=== PATIENT | female | born 1965 | race Caucasian/White ===

== ENCOUNTER → 2020-06-09 14:53 | Outpatient (CLI) | payer OTHER, SELFPAY ==
--- NOTE | ~2020-06-09 | XR_ITS ---
EXAMINATION: XR chest 2V DATE: 06/09/2020 15:13 INDICATION: Cough. TECHNIQUE: Frontal and lateral views of the chest were obtained. COMPARISON: CT abdomen and pelvis 04/21/2018 FINDINGS: There are airspace opacities in lingula, consistent with pneumonia. There is chronic blunti ng of left posterior costophrenic angle correlating with a small diaphragmatic hernia containing fat on the prior CT. No pleural effusion or pneumothorax. The heart size is normal. IMPRESSION: 1. Lingular pneumonia. Reviewed, dictated and finalized at location B. IMPRESSION: 1. Lingular pneumonia.
== END ==
PROVIDERS: PCP Family Medicine; Visit Provider Physician Assistant Medical
DX: R05 Cough (principal); J18.9 Pneumonia, unspecified organism
CPT/HCPCS: 71046

== ENCOUNTER → 2020-06-26 15:23 | Outpatient (CLI) | payer OTHER, SELFPAY ==
--- NOTE | ~2020-06-26 | XR_ITS ---
XR chest 2V 06/26/2020 15:47 Indication: Follow-up pneumonia Procedure: 2 view chest Comparison: 06/09/2020 Findings: There is a masslike density in the lingula which may represent focal consolidation, althoug h parenchymal nodule cannot be excluded. Further evaluation with CT recommended. No pleural effusion. Right lung clear. No pneumothorax. Impression: 1: Masslike density of the lingula. Evaluation with CT with contrast recommended for further characte rization. Reviewed, dictated and finalized at location B. Impression: 1: Masslike density of the lingula. Evaluation with CT with contrast recommende d for further characterization.
== END ==
PROVIDERS: Visit Provider Physician Assistant Medical
DX: J18.9 Pneumonia, unspecified organism (principal); R91.8 Other nonspecific abnormal finding of lung field
CPT/HCPCS: 71046

== ENCOUNTER → 2020-07-04 13:37 | Outpatient (CLI) | payer OTHER, SELFPAY ==
--- NOTE | ~2020-07-04 | CT_ITS ---
EXAMINATION: CT chest w con EXAM DATE: 07/04/2020 14:03 INDICATION: Lung mass. Pneumonia. TECHNIQUE: Spiral CT of the chest following intravenous injection of 75 mL Omnipaque 350. Axial, cor onal and sagittal images were reviewed. Coronal maximum intensity pixel images of chest reviewed. T cynthia dose-length product (DLP) for this examination was 350.73 mGy-cm. The exposure was tailored accor ding to patient size (auto mA exposure control), and iterative reconstruction (ASIR) was used as yakov tional dose reduction technique. Correlation is made to chest x-rays from last month. FINDINGS: There is lingular airspace disease with volume loss, somewhat linear appearance most consi stent with postinfectious atelectasis. The bronchi supplying this appear patent. There are no pleura l or pericardial effusions. Tracheobronchial tree is patent. There is no mediastinal, hilar or ax illary lymphadenopathy. There is no pneumothorax. Heart normal in size. No evidence of coronary arterial calcification. There is hepatic steatosis and small gastroesophageal hiatal hernia. No monae tral pulmonary emboli. There is thoracic spondylosis without osteoblastic or osteolytic lesions iden tified. IMPRESSION: Lingular opacity, appearance most consistent with postinfectious atelectasis. No evidence of underlying mass but recommend one-month follow-up chest x-ray. Reviewed, dictated and finalized at location . IMPRESSION: Lingular opacity, appearance most consistent with postinfectious at electasis. No evidence of underlying mass but recommend one-month follow-up sandie st x-ray.
== END ==
PROVIDERS: PCP Family Medicine; Visit Provider Family Medicine
DX: R51 Headache (principal); R50.9 Fever, unspecified; R22.2 Localized swelling, mass and lump, trunk
CPT/HCPCS: 71260; Q9967

== ENCOUNTER → 2022-02-04 15:14 | Outpatient (CLI) | payer OTHER, SELFPAY ==
--- NOTE | ~2022-02-04 | MM_ITS ---
EXAMINATION: MM screening [place] BI w errol HISTORY: Screening TECHNIQUE: Craniocaudal and mediolateral oblique 3-D tomosynthesis images were obtained and synthetic 2-D images were generated. CAD analysis was submitted and interpreted. COMPARISON: No prior mammogram is available for comparison at this institution. BREAST PARENCHYMAL COMPOSITION: There are scattered areas of fibroglandular density. FINDINGS: There are asymmetries centered in the upper outer quadrant of the right breast, middle thir d which are obscured by fibroglandular tissue. There is a small focal mass containing calcification i n the lower outer quadrant of the left breast. There is a possible mass just lateral to the left nipp le on CC view anteriorly. IMPRESSION: 1. Bilateral asymmetries and focal left breast mass. 2. Additional mammographic views and possible breast ultrasound are recommended. BI-RADS Category 0: Incomplete: Needs additional imaging evaluation. Reviewed, dictated and finalized at location A. IMPRESSION: 1. Bilateral asymmetries and focal left breast mass. 2. Additional mammographic views and possible breast ultrasound are recommended . BI-RADS Category 0: Incomplete: Needs additional imaging evaluation.
== END ==
PROVIDERS: PCP Family Medicine; Visit Provider Nurse Practitioner Obstetrics & Gynecology
DX: Z12.31 Encounter for screening mammogram for malignant neoplasm of breast (principal); R92.8 Other abnormal and inconclusive findings on diagnostic imaging of breast
CPT/HCPCS: 77063; 77067

== ENCOUNTER → 2022-03-19 07:49 | Outpatient (CLI) | payer OTHER, SELFPAY ==
--- NOTE | ~2022-03-19 | MM_ITS ---
EXAMINATION: MM diagnostic [place] BI w errol HISTORY: Right breast masses and left breast asymmetry on screening mammogram TECHNIQUE: Additional 3-D tomosynthesis images of the breasts were performed and synthetic 2-D images were generated. CAD analysis was submitted and interpreted. COMPARISON: 02/04/2022, 12/15/2020,11/02/2019, 10/29/2018 BREAST PARENCHYMAL COMPOSITION: The breasts are heterogeneously dense, which may obscure small masses . FINDINGS: There is a return to baseline fibroglandular appearance with spot compression of the left b reast in the area questioned on screening mammogram. Right breast masses have a stable appearance wit h spot compression when compared to prior examinations. There has been no suspicious interval change. IMPRESSION: 1. No mammographic evidence of malignancy. 2. Recommend routine screening mammography in one year. BI-RADS Category 2: Benign finding(s). Reviewed, dictated and finalized at location A.
== END ==
PROVIDERS: PCP Family Medicine; Visit Provider Nurse Practitioner Obstetrics & Gynecology
DX: N63.10 Unspecified lump in the right breast, unspecified quadrant (principal); N63.20 Unspecified lump in the left breast, unspecified quadrant; R92.8 Other abnormal and inconclusive findings on diagnostic imaging of breast
CPT/HCPCS: 77062; 77066; G0279

== ENCOUNTER 2024-01-09 18:54 | Emergency (ER) | payer OTHER, SELFPAY ==
--- NOTE | ~2024-01-09 | CT_ITS ---
EXAMINATION: CT abdomen pelvis w con DATE: 01/09/2024 20:55 INDICATION: RUQ pain, N/V TECHNIQUE: Computed tomography (CT) of the abdomen and pelvis was performed with 100 mL Omnipaque-350 intravenous contrast. Automated exposure control and iterative reconstruction technique were employe d. The dose-length product was 444.56 mGy-cm. COMPARISON: 04/21/2018. FINDINGS: Lower thorax: Unremarkable Liver: Mild hepatomegaly. Diffuse fatty infiltration. Biliary/Gallbladder: Minimal hyperdensity at the gallbladder neck may represent gallbladder sludge or stones, no inflammatory changes No bile duct dilation. Pancreas: Fatty infiltration, no inflammatory change Spleen: Normal. Adrenals:No mass. Kidneys: No suspicious mass, obstructing stone, or hydronephrosis. GI tract: No small or large bowel dilation. Normal appendix. Mesentery/Peritoneum: No ascites, mass, or free air. Retroperitoneum: No mass. Pelvis: Normal urinary bladder. Absent uterus. Small left ovary. The right ovary is not confidently v isualized.. Soft Tissues: Soft tissues and body wall unremarkable. Bones: No acute osseous finding. IMPRESSION: Mild esophagitis/gastritis. Hepatomegaly with hepatic steatosis. No CT findings of pancreatitis. Reviewed, dictated and finalized at location K.
[2024-01-09 19:20] VITALS: BP 176/82; PULSE 86; RESP 20; TEMP 36.4; O2SAT 96
[2024-01-09 19:33] VITALS: BP 165/89; PULSE 73; RESP 13; O2SAT 99
[2024-01-09 19:52] LABS: Basophils Percent Auto 0.2 % (0.2-1.2); Eosinophils Percent Auto 0.1 % (0-4.4); Hematocrit 43.3 % (37.0-47.0); Hemoglobin 14.8 g/dL (12.0-15.0); Immature Granulocyte Absolute 0.05 K/mm3 (0.00-0.031); Immature Granulocyte Percent A 0.3 % (0-0.5); Lymphocytes Percent Auto 6.2 % (18.3-44.2); Mean Corpuscular HGB Conc 34.2 g/dl (32-36); Mean Corpuscular Hemoglobin 29.7 pg (26-34); Mean Corpuscular Volume 86.8 fl (80-100); Mean Platelet Volume 10.3 fl (7.4-10.4); Monocytes Absolute Auto 0.5 K/mm3 (0.1-0.6); Neutrophils Absolute Auto 14.5 K/mm3 (1.3-6.7); Neutrophils Percent Auto 90.2 % (45.5-73.1); Platelet Count Result 272 k/mm3 (150-375); Red Blood Count 4.99 M/mm3 (4.2-5.4)
[2024-01-09 19:55] LABS: Appearance Urine Turbid (Clear); Bacteria Urine None Seen /hpf; Bilirubin Urine Negative (Negative); Blood Urine Negative (Negative); Color Urine Yellow (Yellow); Glucose Urine UA Negative (Negative); Ketones Urine 2+ mg/dL (Negative); Leukocyte Esterase Ur Trace LEU/UL (Negative); Nitrate Urine Negative (Negative); Non Pathogenic Casts 0-2; Protein Urine Negative (Negative); RBC Urine 0-2 /hpf (0-2); Specific Grav Ur 1.015 (1.001-1.035); Squamous Epithelial Cell Urine None Seen /hpf (Few); Urobilinogen Urine 0.2 mg/dL (<2.0); WBC Urine 0-5 /hpf (0-3)
[2024-01-09 19:56] LABS: Add Urine Microscopic? NO
[2024-01-09 20:02] LABS: Alanine Aminotransferase 45 U/L (6-35); Albumin Level 4.8 g/dL (3.5-5.1); Alkaline Phosphatase 85 U/L (38-126); Anion Gap 7 mmol/L (4-12); Aspartate Amino Transferase 31 U/L (14-36); Bilirubin,Total 1.4 mg/dL (0.2-1.3); Blood Urea Nitrogen 13 mg/dL (7-17); Calcium 10.6 mg/dL (8.4-10.2); Carbon Dioxide 30 mmol/L (22-30); Chloride 98 mmol/L (98-107); Estimated CRCL calculation 72 ml/min; Estimated Glomerular Filt Rate > 60; Glucose 149 mg/dL (65-110); Lipase 128 U/L (23-300); Potassium 4.2 mmol/L (3.4-5.0); Sodium 135 mmol/L (137-145)
[2024-01-09] MEDS: ONDANSETRON INJ 4 MG/2 ML VIAL IV PUSH ×2 (20:16→22:46)
[2024-01-09] MEDS: MORPHINE SULFATE (*CRX) 4 MG/ML INJ IV PUSH (20:16)
[2024-01-09] MEDS: SODIUM CHLORIDE 0.9% IV 1,000 ML 999 ML IV CONT (20:17)
[2024-01-09 20:39] LABS: Lactic Acid Reflex 1.8 mmol/L (0.7-2.0)
[2024-01-09 21:14] VITALS: BP 155/80; PULSE 92; RESP 18; O2SAT 95
[2024-01-09] MEDS: METOCLOPRAMIDE HCL INJ 10 MG/2 ML VIAL IV PUSH (21:27)
[2024-01-09] MEDS: diphenhydrAMINE HCl INJ 50 MG/ML VIAL 25 MG IV PUSH (21:29)
--- NOTE | 2024-01-09 21:50 | ED.ABDPAIN ---
HPI - Abdominal Pain General Chief Complaint: Abdominal Pain Stated Complaint: abdominal pain n/v Time Seen by Provider: 01/09/24 19:33 Source: patient Mode of arrival: ambulatory Limitations: no limitations History of Present Illness HPI narrative: patient is a 58-year-old female who presents the ED with report of abdominal pain. Patient reports she began feeling ill last night and developed indigestion throughout the night. She then developed N/V today, reporting multiple episodes of emesis which progressed to nausea with dry heaving. Reports having intermittent discomfort in her right upper abdomen, multiple bowel movements today. Denies diarrhea, rectal bleeding, melena. Denies fevers. Denies cough or cold symptoms. Denies urinary complaints. Denies chest pain or shortness of breath. Patient has a history of pancreatitis 4 years ago and states pain feels somewhat similar. She reported having pizza and wine last night. Related Data Allergies Allergy/AdvReac Type Severity Reaction Status Date / Time clarithromycin Allergy Unknown Unknown Verified 01/09/24 19:34 Penicillins Allergy Unknown Unknown Verified 01/09/24 19:34 Sulfa (Sulfonamide Allergy Unknown Unknown Verified 01/09/24 19:34 Antibiotics) sulfanilamide Allergy Unknown Unknown Verified 01/09/24 19:34 Review of Systems Review of Systems: CONSTITUTIONAL: Denies fever, chills, or sweats. CARDIOVASCULAR: Denies chest pain. RESPIRATORY: Denies dyspnea. GASTROINTESTINAL: See HPI. GENITOURINARY: Denies dysuria or hematuria. MUSCULOSKELETAL: Denies back pain, extremity pain, myalgia. All systems reviewed & are unremarkable except as noted in HPI and below PMFSH Past Medical History Medical History BMI 29.0-29.9,adult BMI 30.0-30.9,adult BMI 31.0-31.9,adult Family History Family History Mother Family history of renal cell carcinoma H/O kidney removal Father , cancer Sibling Depression Hyperlipidemia Hypertension Social History Social History Smoking status: Former smoker Second hand tobacco smoke exposure: Yes Smoking end date: 10/13/10 Alcohol intake: current Substance use: current Substance use type: marijuana Lack of Transportation: No Lack of Food: Never True Current Housing: I Have Housing Concerned About Future Housing: No Difficulty Paying Gas/Electric Bills: No Difficulty Paying for Meds: No Currently Unemployed: No Education: High School Diploma/GED Difficulty w/ Childcare or Family Care: No Living arrangements: with family Occupation/Education: occupation 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 Gender identity (if verbalized by the patient): Female Exam Narrative: GENERAL: Mildly ill appearing, well-nourished, non-toxic, in no acute distress. HEAD: Normocephalic, atraumatic. RESPIRATORY: Airway patent, respirations nonlabored. Clear to auscultation bilaterally, no rales, rhonchi, wheezing. CARDIOVASCULAR: Regular rate and rhythm without murmurs, rubs, or gallops. ABDOMINAL: Soft, Minimal tenderness in right upper quadrant, epigastric region. Nondistended. Normoactive BS. MUSCULOSKELETAL: Moves all extremities. No gross deformities. SKIN: Warm, dry, normal color. NEURO: A&O X3. Speech clear. PSYCHIATRIC: Appropriate mood and affect. Normal interaction. Course Vital Signs Vital signs: Vital Signs Temperature 97.5 F L 01/09/24 19:20 Pulse Rate 86 01/09/24 19:20 Respiratory Rate 20 01/09/24 19:20 Blood Pressure 176/82 H 01/09/24 19:20 Pulse Oximetry 96 01/09/24 19:20 Oxygen Delivery Room Air 01/09/24 19:20 Temperature 97.5 F L 01/09/24 19:20 Pulse Rate 88 01/09/24 22:27 Respiratory
[2024-01-09] MEDS: BELLADONNA ALK/PHENOB ELIX 10 ML, MAG HYDROX/ALUMINUM HYD/SIMETH 30 ML, LIDOCAINE HCL 2... PO (21:58)
--- NOTE | 2024-01-09 22:26 | PC.NURSE ---
Pt passed PO challenge
[2024-01-09 22:27] VITALS: BP 148/81; PULSE 88; RESP 14; O2SAT 96
[2024-01-09 22:51] VITALS: BP 158/90; PULSE 86; RESP 16; O2SAT 96
== END 2024-01-09 22:51 | disposition home or self-care (01) ==
PROVIDERS: Student in an Organized Health Care Education/Training Program; Emergency Provider Physician Assistant; PCP Family Medicine
DX: K29.00 Acute gastritis without bleeding (principal); Z87.891 Personal history of nicotine dependence; K76.0 Fatty (change of) liver, not elsewhere classified
CPT/HCPCS: 36415; 74177; 80053; 81003; 83605; 83690; 85025; 96361; 96374; 96375; 96376; 99284; A9270; J1200; J2270; J2405; J2765; J7030; Q9967

== ENCOUNTER 2024-01-11 04:40 | Inpatient (IN) | payer OTHER, SELFPAY ==
[2024-01-11] VITALS (16 sets, daily range): BP systolic 129–177; BP diastolic 81–145; PULSE 75–92; RESP 15–18; TEMP 36.6–37.1; O2SAT 92–100
--- NOTE | ~2024-01-11 | CT_ITS ---
EXAMINATION: CT abdomen pelvis wo/w con DATE: 01/11/2024 08:59 INDICATION: Pancreatitis. Hyperbilirubinemia. TECHNIQUE: Computed tomography (CT) of the abdomen and pelvis was performed without and with 100 mL O mnipaque 350 intravenous contrast. Automated exposure control and iterative reconstruction technique were employed. The dose-length product was 1027.21 mGy-cm. COMPARISON: CT abdomen and pelvis 01/09/2024 FINDINGS: The visualized portions of the lung bases demonstrate minimal atelectasis. No pleural effus ion. The heart size is normal. No pericardial effusion. There is a small sliding hiatal hernia. There is diffuse hepatic steatosis. There is contrast in the gallbladder, which is normal in size. The spl een, pancreas, adrenal glands, and kidneys are normal. There is no urolithiasis. There are no dilated loops of bowel. The appendix is normal. There are no pathologically enlarged lymph nodes. There is n o free intraperitoneal fluid. There is a benign bone island in right sacrum. There is moderate lumbar spondylosis. There is mild chronic anterior wedging of multiple vertebral bodies. There is a benign bone island in L4 vertebral body. IMPRESSION: 1. Diffuse hepatic steatosis. 2. Small sliding hiatal hernia. Reviewed, dictated and finalized at location E.
--- NOTE | ~2024-01-11 | US_ITS ---
US abdomen limited DATE: 01/11/2024 09:04 INDICATION: Pancreatitis. Positive Miller's sign. TECHNIQUE: Real-time imaging of liver, pancreas, gallbladder areas COMPARISON: 01/09/2024 CT abdomen pelvis 04/21/2018 right upper quadrant abdominal ultrasound examination FINDINGS: The pancreas is obscured by bowel gas. Hepatic steatosis. No hepatic space-occupying mass lesion is evident. Normal hepatopedal portal venou s flow direction. The common bile duct measures 4.5 mm, normal. No gallstones or gallbladder wall thickening or abnorma l pericholecystic fluid collection. Negative sonographic Miller's sign. IMPRESSION: Hepatic steatosis Normal gallbladder; negative sonographic Miller's sign Pancreas is obscured by bowel gas Reviewed, dictated and finalized at Location A. Reviewed, dictated and finalized at location A.
--- NOTE | 2024-01-11 04:54 | ED.ABDPAIN ---
HPI - Abdominal Pain General Chief Complaint: Abdominal Pain Stated Complaint: N/V, abd pain Time Seen by Provider: 01/11/24 04:54 Source: patient Mode of arrival: ambulatory Limitations: no limitations History of Present Illness HPI narrative: Patient presents with complaint of nausea, vomiting, and RUQ abdominal pain. Her pain is worse while lying down. She was seen previously for this on 01/08 and diagnosed with gastritis. She attribute symptoms at the time to the 2 glasses of wine she had consumed the night before but she has not been improving despite taking the Zofran. She has also been taking Nexium (instead of the omeprazole that had been prescribed from the ED). She has a history of pancreatitis. She has been taking ibuprofen and aspirin for a fever (temp 100 - 101F at home) and has been having bilious vomiting. Last oral intake Friday. Last bowel movement Friday. She has trialed Tums; can't keep anything down. She had one episode of emesis that was nearly projectile but not all have been. She states when she was in the ED last time she required 3 doses of IV ondansetron. She believes the abdominal pain started before the vomiting. Related Data Home Medications Medication Instructions Recorded Confirmed azelastine 137 mcg-fluticasone 50 1 spray intranasal BID PRN Allergy 01/11/24 01/11/24 mcg/spray nasal spray (Dymista) Symptoms omeprazole 10 mg capsule,delayed 10 mg PO DAILY PRN Gastric Reflux 01/11/24 01/11/24 release Allergies Allergy/AdvReac Type Severity Reaction Status Date / Time clarithromycin Allergy Unknown Unknown Verified 01/11/24 07:28 Penicillins Allergy Unknown Unknown Verified 01/11/24 07:28 Sulfa (Sulfonamide Allergy Unknown Unknown Verified 01/11/24 07:28 Antibiotics) sulfanilamide Allergy Unknown Unknown Verified 01/11/24 07:28 [facility] Past Medical History Medical History (Updated 01/13/24 @ 00:35 by Meera Katz MD) Allergies Anxiety Asthma Hyperlipidemia Pancreatitis Surgical History Surgical History (Updated 01/13/24 @ 00:26 by Meera Katz MD) History of hysterectomy 2002 Family History Family History Mother Family history of renal cell carcinoma H/O kidney removal Father , cancer Sibling Depression Hyperlipidemia Hypertension Social History Social History (Updated 01/11/24 @ 14:57 by Olivia Garcia PA-C) Social History: Patient currently lives in a house with her spouse. She has never had any kids. She drinks 3 times a week and has approximately 2 drinks each setting. She does use marijuana approximately every other day. Has a history of tobacco use for approximately 20 years with 1 pack per day. She has not smoked for approximately 20 years. 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 Gender identity (if verbalized by the patient): Female Spiritual care concerns: No Exam Narrative: GENERAL: Well-appearing, well-nourished, and in no acute distress. HEAD: Normocephalic, atraumatic. EYES: Non injected, non icteric ENT: Nares clear, no rhinorrhea or epistaxis. NECK: Supple. CHEST: Speaking in full sentences. No respiratory distress. HEART: Regular rate and rhythm. . ABD
[2024-01-11] MEDS: SODIUM CHLORIDE 0.9% IV 1,000 ML 999 ML IV CONT ×2 (05:14→07:27)
[2024-01-11] MEDS: PROCHLORPERAZINE EDISYLATE 10 MG/2 ML VIAL IV PUSH ×3 (05:16→23:45)
[2024-01-11 05:32] LABS: Basophils Percent Auto 0.2 % (0.2-1.2); Eosinophils Percent Auto 0.2 % (0-4.4); Hematocrit 45.1 % (37.0-47.0); Hemoglobin 15.4 g/dL (12.0-15.0); Immature Granulocyte Absolute 0.09 K/mm3 (0.00-0.031); Immature Granulocyte Percent A 0.5 % (0-0.5); Lymphocytes Absolute Auto 1.67 K/mm3 (0.9-3.2); Lymphocytes Percent Auto 8.4 % (18.3-44.2); Mean Corpuscular HGB Conc 34.1 g/dl (32-36); Mean Corpuscular Hemoglobin 29.3 pg (26-34); Mean Corpuscular Volume 85.7 fl (80-100); Mean Platelet Volume 10.3 fl (7.4-10.4); Monocytes Absolute Auto 1.4 K/mm3 (0.1-0.6); Monocytes Percent Auto 6.9 % (2.6-8.5); Neutrophils Absolute Auto 16.7 K/mm3 (1.3-6.7); Neutrophils Percent Auto 83.8 % (45.5-73.1); Platelet Count Result 305 k/mm3 (150-375); Red Blood Count 5.26 M/mm3 (4.2-5.4); Red Cell Distribution Width 12.2 % (11.5-14.5); White Blood Count 19.9 K/mm3 (4.5-10.0)
[2024-01-11 05:42] LABS: Alanine Aminotransferase 48 U/L (6-35); Alkaline Phosphatase 80 U/L (38-126); Anion Gap 10 mmol/L (4-12); Aspartate Amino Transferase 29 U/L (14-36); Bilirubin,Total 1.8 mg/dL (0.2-1.3); Blood Urea Nitrogen 17 mg/dL (7-17); Calcium 10.1 mg/dL (8.4-10.2); Carbon Dioxide 27 mmol/L (22-30); Chloride 93 mmol/L (98-107); Estimated CRCL calculation 70 ml/min; Estimated Glomerular Filt Rate > 60; Glucose 133 mg/dL (65-110); Lipase 1321 U/L (23-300); Potassium 3.9 mmol/L (3.4-5.0); Sodium 130 mmol/L (137-145)
[2024-01-11 05:43] LABS: Appearance Urine Clear (Clear); Bacteria Urine None Seen /hpf; Bilirubin Urine Negative (Negative); Blood Urine 1+ (Negative); Color Urine Yellow (Yellow); Glucose Urine UA Negative (Negative); Ketones Urine 2+ mg/dL (Negative); Leukocyte Esterase Ur Trace LEU/UL (Negative); Nitrate Urine Negative (Negative); Non Pathogenic Casts 0-2; Protein Urine 2+ mg/dL (Negative); Squamous Epithelial Cell Urine Occasional /hpf (Few); Urobilinogen Urine 0.2 mg/dL (<2.0); WBC Urine 0-5 /hpf (0-3); pH Urine 6.5 (5.0-9.0)
[2024-01-11 06:00] LABS: Add Urine Microscopic? YES
[2024-01-11 06:08] LABS: Influenza A QL RT-PCR Negative (Negative); Influenza B QL RT-PCR Negative (Negative); SARS-CoV-2 RNA PCR Negative (Negative)
[2024-01-11] MEDS: metroNIDAZOLE 500 MG/ISO 100ML 500 MG/100 ML BAG 100 MG IVPB ×2 (07:53→13:04)
--- NOTE | 2024-01-11 08:31 | PM.IMHP ---
H&P: HPI History of Present Illness Date/Time: 01/11/24 08:31 Chief Complaint: abdominal pain Narrative: This is a 58-year-old female with a past medical history of asthma, hyperlipidemia, anxiety and GERD the present to the ED on 01/11/2024 with chief complaint of abdominal pain. patient had been experiencing nausea vomiting as well as a subjective fever at home. Patient states that the fever was between 100 and 101. She also was experiencing decreased appetite. Her abdominal pain was isolated to the right upper quadrant. Patient's pain started on 01/08/2024 after she had pizza for dinner and 2 glasses of wine. Patient states that she drinks alcohol approximately 3 times a week about 2 drinks each time. She also uses marijuana every other day in the form of edibles. Has a smoking history but quit 20 years ago. Patient was recently seen in the ED on 01/09/2024 due to abdominal pain. Patient's workup included CBC, CMP, lipase and CT abdomen pelvis. She did have a elevated white count of 16, elevated bilirubin of 1.4, ALT 45 and ketones in her urine. CT abdomen pelvis grossly normal. Lipase within normal limits at that time. Patient was sent home on some Zofran and omeprazole. She returned during this visit with worsening abdominal pain. Her white count elevated to 19.9, hemoglobin 15.4, bilirubin 1.8 and a lipase level of 1321. Her UA was abnormal although appeared more due to dehydration rather than infection. Right upper quadrant ultrasound revealed normal gallbladder. Repeat CT abdomen pelvis showed diffuse hepatic steatosis without evidence of pancreatitis. She was started on IV fluids. She is admitted for further treatment acute pancreatitis. At the time of my evaluation patient is abdominal pain was much improved and states that she had an achy right upper quadrant pain but much better than it was previously. [facility] Past Medical History Medical History (Updated 01/11/24 @ 14:56 by Olivia Garcia PA-C) Allergies Anxiety Asthma BMI 29.0-29.9,adult BMI 30.0-30.9,adult BMI 31.0-31.9,adult Hyperlipidemia Family History Family History Mother Family history of renal cell carcinoma H/O kidney removal Father , cancer Sibling Depression Hyperlipidemia Hypertension Social History Social History (Updated 01/11/24 @ 14:57 by Olivia Garcia PA-C) Social History: Patient currently lives in a house with her spouse. She has never had any kids. She drinks 3 times a week and has approximately 2 drinks each setting. She does use marijuana approximately every other day. Has a history of tobacco use for approximately 20 years with 1 pack per day. She has not smoked for approximately 20 years. 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 Gender identity (if verbalized by the patient): Female Spiritual care concerns: No Meds Home Medications and Allergies Home Medications Medication Instructions Recorded Confirmed Type alprazolam 0.25 mg tablet (Xanax) 0.25 mg PO DAILY PRN anxiety #30 05/22/23 01/11/24 Rx tabs rosuvastatin 10 mg tablet (Crestor) 10 mg PO DAILY #90 tabs 05/22/23 01/11/24 Rx albuterol sulfate 90 mcg/actuation 1 inh inhalation Q4H P
[2024-01-11] MEDS: SODIUM CHLORIDE 0.9% IV 1,000 ML 175 ML IV CONT ×3 (09:06→23:45)
--- NOTE | 2024-01-11 09:10 | ADMGEN ---
This patient, Jamilah Anderson, was admitted to [facility] Surg Room 316-02 @ 0910. Patient/family oriented to hospital policies and general routines including ID bracelet, bed and alarms, visiting hours, pain management, procedures, bathroom and other care routines, personal items, smoking policy, room service/diet, and visiting hours. Information on how to activate the Rapid Response Team has been discussed. Patient/Family are encouraged to report perceived risks to care and to ask questions if they do not understand what they are told or what they should do.
[2024-01-11] MEDS: ACETAMINOPHEN 325 MG TABLET 650 MG PO (17:54)
[2024-01-12] MEDS: ACETAMINOPHEN 325 MG TABLET 650 MG PO (03:31)
[2024-01-12] MEDS: SODIUM CHLORIDE 0.9% IV 1,000 ML 175 ML IV CONT ×3 (05:20→21:52)
[2024-01-12 05:59] VITALS: BP 114/60; PULSE 106; RESP 16; TEMP 37.3; O2SAT 92
[2024-01-12 07:24] LABS: Hematocrit 40.4 % (37.0-47.0); Hemoglobin 13.4 g/dL (12.0-15.0); Mean Corpuscular HGB Conc 33.2 g/dl (32-36); Mean Corpuscular Hemoglobin 29.4 pg (26-34); Mean Corpuscular Volume 88.6 fl (80-100); Mean Platelet Volume 10.4 fl (7.4-10.4); Platelet Count Result 221 k/mm3 (150-375); Red Blood Count 4.56 M/mm3 (4.2-5.4); White Blood Count 12.9 K/mm3 (4.5-10.0)
[2024-01-12 07:32] LABS: Anion Gap 6 mmol/L (4-12); Blood Urea Nitrogen 12 mg/dL (7-17); Calcium 8.4 mg/dL (8.4-10.2); Carbon Dioxide 25 mmol/L (22-30); Chloride 100 mmol/L (98-107); Estimated CRCL calculation 95 ml/min; Estimated Glomerular Filt Rate > 60; Glucose 99 mg/dL (65-110); Potassium 3.2 mmol/L (3.4-5.0); Sodium 131 mmol/L (137-145)
[2024-01-12 08:00] VITALS: PULSE 106; RESP 16; O2SAT 92
[2024-01-12] MEDS: POTASSIUM CHLORIDE 20 MEQ PACKET (FOR LIQUID) 40 MEQ PO (08:55)
[2024-01-12 09:25] LABS: Lipase 1516 U/L (23-300)
[2024-01-12] MEDS: HYDROcodone/acetaminophen (*CRX) 5-325 MG TABLET 1 TAB PO (09:34)
[2024-01-12] MEDS: PROCHLORPERAZINE EDISYLATE 10 MG/2 ML VIAL IV PUSH (09:37)
[2024-01-12 13:30] VITALS: BP 142/85; PULSE 82; RESP 17; TEMP 36; O2SAT 95
--- NOTE | 2024-01-12 14:47 | PM.IMPN ---
Progress Note: A&P Assessment and Plan (1) Acute pancreatitis: Code(s): K85.90 - Acute pancreatitis without necrosis or infection, unspecified Status: Acute Assessment and Plan: Patient presented with acute abdominal pain and found to have elevated lipase of 1321. Right upper quadrant ultrasound without signs of acute infection CT abdomen pelvis showing hepatic steatosis without evidence of pancreatitis. Patient started on IV fluids. Analgesics and antiemetics as needed. Clear liquid diet Trend lipase levels 1321 -> 1516 (2) Elevated bilirubin: Code(s): R17 - Unspecified jaundice Status: Acute Assessment and Plan: Patient found to have elevated bilirubin of 1.8. Right upper quadrant ultrasound negative for acute infection IV fluids continue. (3) Transaminitis: Code(s): R74.01 - Elevation of levels of liver transaminase levels Status: Acute Assessment and Plan: Patient with ALT elevated to 45. Continue to monitor (4) Dehydration: Code(s): E86.0 - Dehydration Status: Acute Assessment and Plan: patient has had decreased oral intake due to abdominal pain. Hemoglobin elevated to 15.4. UA with elevated ketones and protein. IV fluids continued Subjective Date/time seen: 01/12/24 14:47 Interval history: patient's abdominal pain is improving. She is still having some intermittent nausea. Her lipase elevated at 1500 today. Will continue IV fluids. Pain medications as needed. Will attempt to advance diet tomorrow. CT abdomen pelvis did not show any signs of acute pancreatitis. Will order triglyceride level for the a.m. Exam Narrative: GENERAL: Comfortable, no acute distress HENMT: moist mucous membranes EYES: EOM intact b/l NECK: no lymphadenopathy RESPIRATORY: clear to auscultation, no increased respiratory effort CARDIO: Regular rate and rhythm GI: soft, Mild right upper quadrant tenderness, bowel sounds present SKIN/EXTREMITIES: no rashes, no edema, no redness or tenderness NEURO: PROM intact, answers questions appropriately, A&O x4 Objective Data Vital Signs Vital Signs: Vital Signs - 24 hr 01/11/24 21:17 01/12/24 05:59 01/12/24 08:00 Temperature 98.8 F 99.1 F Pulse Rate 78 106 H 106 H Respiratory Rate 16 16 16 Blood Pressure 129/81 114/60 Pulse Oximetry 97 92 92 Oxygen Delivery Room Air 01/12/24 13:30 Temperature 96.8 F L Pulse Rate 82 Respiratory Rate 17 Blood Pressure 142/85 H Pulse Oximetry 95 Oxygen Delivery Intake/Output Intake/Output: Intake & Output 01/09/24 01/10/24 01/11/24 01/12/24 23:59 23:59 23:59 23:59 Intake Total 4490 3377.1 Balance 4490 3377.1 Meds/Results Medications: Active Medications Generic Name Dose Route Start Last Admin Trade Name Freq PRN Reason Stop Dose Admin Acetaminophen 650 mg 01/11/24 14:58 01/12/24 03:31 Acetaminophen 325 Mg Tablet PO 650 mg Q6H PRN Administration Mild Pain (1-3) or Fever Hydrocodone Bitart/Acetaminophen 1 tab 01/11/24 14:58 01/12/24 09:34 Hydrocodone/Acetaminophen (*Crx) 5-325 Mg Tablet PO 1 tab Q6H PRN Administration Pain Rated 4-6 Albuterol 1 puff 01/11/24 14:57 Albuterol Sulfate (*Sp) Aerosol 1 Puff INHALATION Q4H PRN shortness of breath or wheezing Alprazolam 0.25 mg 01/11/24 14:57 Alprazolam (*Crx) 0.25 Mg Tablet PO DAILY PRN anxiety Hydromorphone HCl 0.5 mg 01/11/24 14:58 Hydromorphone Hcl Inj (*Crx) 1 Mg/Ml Syr IV PUSH Q3H PRN Pain Rated 7-10 Sodium Chloride 1,000 mls @ 175 mls/hr 01/11/24 06:45 01/12/24 11:23 Normal Saline Iv IV CONT 175 mls/hr .Q5H43M LUCIA Administration Prochlorperazine Edisylate 10 mg 01/11/24 06:41 01/12/24 09:37 Prochlorperazine Edisylate 10 Mg/2 Ml Vial IV PUSH 10 mg Q6H PRN Administration Nausea And Vomiting Radiology Result
[2024-01-12 20:53] VITALS: BP 133/86; PULSE 85; RESP 20; TEMP 36.8; O2SAT 97
[2024-01-12] MEDS: MAGNES & ALUM HYD/SIMETH/DIPHENHYD/LIDOCAINE 119 ML MOUTHWASH BY MOUTH (21:55)
[2024-01-12 22:27] LABS: Strep Group A RT-PCR NOT DETECTED (Negative)
[2024-01-13] MEDS: MAGNES & ALUM HYD/SIMETH/DIPHENHYD/LIDOCAINE 119 ML MOUTHWASH BY MOUTH ×3 (02:26→09:44)
[2024-01-13] MEDS: ACETAMINOPHEN 325 MG TABLET 650 MG PO (02:32)
[2024-01-13 04:45] VITALS: BP 140/73; PULSE 71; RESP 18; TEMP 36.8; O2SAT 94
[2024-01-13] MEDS: SODIUM CHLORIDE 0.9% IV 1,000 ML 175 ML IV CONT (05:47)
[2024-01-13 07:07] LABS: Hemoglobin 11.5 g/dL (12.0-15.0); Mean Corpuscular HGB Conc 32.9 g/dl (32-36); Mean Corpuscular Hemoglobin 29.3 pg (26-34); Mean Corpuscular Volume 89.3 fl (80-100); Mean Platelet Volume 10.3 fl (7.4-10.4); Platelet Count Result 181 k/mm3 (150-375); Red Blood Count 3.92 M/mm3 (4.2-5.4); Red Cell Distribution Width 12.2 % (11.5-14.5); White Blood Count 6.8 K/mm3 (4.5-10.0)
[2024-01-13 07:10] LABS: Alanine Aminotransferase 26 U/L (6-35); Alkaline Phosphatase 48 U/L (38-126); Anion Gap 3 mmol/L (4-12); Aspartate Amino Transferase 20 U/L (14-36); Blood Urea Nitrogen 10 mg/dL (7-17); Calcium 7.9 mg/dL (8.4-10.2); Carbon Dioxide 25 mmol/L (22-30); Chloride 105 mmol/L (98-107); Cholesterol 81 mg/dL (0-200); Estimated CRCL calculation 81 ml/min; Estimated Glomerular Filt Rate > 60; Glucose 96 mg/dL (65-110); HDL Direct 29 mg/dL; Lipase 477 U/L (23-300); Potassium 3.3 mmol/L (3.4-5.0); Sodium 133 mmol/L (137-145); Triglycerides 92 mg/dL (<150)
[2024-01-13 07:21] LABS: LDL Cholesterol Direct 46 mg/dL
[2024-01-13] MEDS: POTASSIUM CHLORIDE 20 MEQ PACKET (FOR LIQUID) 40 MEQ PO (09:42)
--- NOTE | 2024-01-13 12:09 | PM.DS ---
DS: Admitting Diagnosis Discharge Date 01/13/24 Admitting Diagnosis pancreatitis DS: Discharge Diagnosis Discharge Diagnosis (1) Acute pancreatitis: Code(s): K85.90 - Acute pancreatitis without necrosis or infection, unspecified Status: Acute (2) Elevated bilirubin: Code(s): R17 - Unspecified jaundice Status: Acute (3) Transaminitis: Code(s): R74.01 - Elevation of levels of liver transaminase levels Status: Acute (4) Dehydration: Code(s): E86.0 - Dehydration Status: Acute DS: Summary Hospital Course Hospital Course: This is a 58-year-old female with a past medical history of asthma, hyperlipidemia, anxiety and GERD the present to the ED on 01/11/2024 with chief complaint of abdominal pain. patient had been experiencing nausea vomiting as well as a subjective fever at home.? Patient states that the fever was between 100 and 101.? She also was experiencing decreased appetite. Her abdominal pain was isolated to the right upper quadrant. ? Patient's pain started on 01/08/2024 after she had pizza for dinner and 2 glasses of wine.? Patient states that she drinks alcohol approximately 3 times a week about 2 drinks each time.? She also uses marijuana every other day in the form of edibles.? Has a smoking history but quit 20 years ago. ? Patient was recently seen in the ED on 01/09/2024 due to abdominal pain.? Patient's workup included CBC, CMP, lipase and CT abdomen pelvis.? She did have a elevated white count of 16, elevated bilirubin of 1.4, ALT 45 and ketones in her urine.? CT abdomen pelvis grossly normal.? Lipase within normal limits at that time.? Patient was sent home on some Zofran? and omeprazole.? She returned during this visit with worsening abdominal pain.? Her white count elevated to 19.9, hemoglobin 15.4, bilirubin 1.8 and a lipase level of 1321.? Her UA was abnormal although appeared more due to dehydration rather than infection.? Right upper quadrant ultrasound revealed normal gallbladder.? Repeat CT abdomen pelvis showed diffuse hepatic steatosis? without evidence of pancreatitis.? She was started on IV fluids.?Lipase was 1516 on 01/11 then trended down to 477 on 01/12. Patient diet was advanced and she tolerated it well. Will discharge her back home. Time Spent with Patient Time attestation: Total time spent providing and/or coordinating discharge services: Exam Narrative: GENERAL: Comfortable, no acute distress HENMT: moist mucous membranes EYES: EOM intact b/l NECK: no lymphadenopathy RESPIRATORY: clear to auscultation, no increased respiratory effort CARDIO: Regular rate and rhythm GI: soft, nontender, bowel sounds present SKIN/EXTREMITIES: no rashes, no edema, no redness or tenderness NEURO: PROM intact, answers questions appropriately, A&O x4 DS: Data Data Completed and Pending Labs on day of discharge: Labs from last 24 hours 01/13/24 01/12/24 06:34 21:57 WBC 6.8 RBC 3.92 L Hgb 11.5 L Hct 35.0 L MCV 89.3 MCH 29.3 MCHC 32.9 RDW 12.2 Plt Count 181 MPV 10.3 Sodium 133 L Potassium 3.3 L Chloride 105 Carbon Dioxide 25 Anion Gap 3 L BUN 10 Creatinine 0.60 L Estim Creat Clear Calc 81 Estimated GFR > 60 Glucose 96 Calcium 7.9 L Total Bilirubin 1.0 AST 20 ALT 26 Alkaline Phosphatase 48 Total Protein 5.0 L Albumin 3.0 L Triglycerides 92 Cholesterol 81 LDL Cholesterol Direct 46 HDL Direct 29 Lipase 477 H Group A Strep (PCR) Not detected Discharge Plan Discharge Attending physician on discharge: Evelia Daniel Discharging Clinician: Olivia Garcia Patient Disposition: Home, Self-Care Activity: as tolerated Diet: bland Discharge Instructions: DISCHARGE INSTRUCTIONS: Call your doctor if: -You have severe pain in your abdomen and you are vomiting. -You have a fever. -You continue to lose weight without trying. -Your skin or the whites of your eyes turn y
== END 2024-01-13 14:00 | disposition home or self-care (01) | DRG 439 ==
LOC: ANHED 05:19 → ANH3MEDSUR 09:52
PROVIDERS: Internal Medicine Critical Care Medicine; Admitting Provider Internal Medicine; Emergency Provider Student in an Organized Health Care Education/Training Program; PCP Family Medicine; Visit Provider Hospitalist
DX: K85.90 Acute pancreatitis without necrosis or infection, unspecified (principal); R17 Unspecified jaundice; E86.0 Dehydration; E78.5 Hyperlipidemia, unspecified; J45.909 Unspecified asthma, uncomplicated; K21.9 Gastro-esophageal reflux disease without esophagitis; K76.0 Fatty (change of) liver, not elsewhere classified; R74.01 Elevation of levels of liver transaminase levels; F41.9 Anxiety disorder, unspecified; F17.210 Nicotine dependence, cigarettes, uncomplicated; F12.90 Cannabis use, unspecified, uncomplicated; Z20.822 Contact with and (suspected) exposure to COVID-19
CPT/HCPCS: 36415; 74178; 76705; 80048; 80053; 80061; 81001; 83690; 85025; 85027; 87636; 87651; 96361; 96374; 99285; A9270; J0696; J0780; J1836; J7030; Q9967

== ENCOUNTER 2024-02-09 11:10 | Emergency (ER) | payer OTHER, SELFPAY ==
[2024-02-09 11:25] VITALS: BP 150/74; PULSE 65; RESP 18; TEMP 36.4; O2SAT 98
[2024-02-09 13:20] LABS: Basophils Percent Auto 0.2 % (0.2-1.2); Eosinophils Percent Auto 0.1 % (0-4.4); Hematocrit 43.2 % (37.0-47.0); Hemoglobin 14.3 g/dL (12.0-15.0); Immature Granulocyte Absolute 0.04 K/mm3 (0.00-0.031); Immature Granulocyte Percent A 0.3 % (0-0.5); Lymphocytes Absolute Auto 0.71 K/mm3 (0.9-3.2); Lymphocytes Percent Auto 5.4 % (18.3-44.2); Mean Corpuscular HGB Conc 33.1 g/dl (32-36); Mean Corpuscular Hemoglobin 29.7 pg (26-34); Mean Corpuscular Volume 89.6 fl (80-100); Mean Platelet Volume 10.4 fl (7.4-10.4); Monocytes Absolute Auto 0.3 K/mm3 (0.1-0.6); Monocytes Percent Auto 2.1 % (2.6-8.5); Neutrophils Absolute Auto 12.1 K/mm3 (1.3-6.7); Neutrophils Percent Auto 91.9 % (45.5-73.1); Platelet Count Result 233 k/mm3 (150-375); Red Blood Count 4.82 M/mm3 (4.2-5.4); Red Cell Distribution Width 12.7 % (11.5-14.5); White Blood Count 13.1 K/mm3 (4.5-10.0)
[2024-02-09 13:28] VITALS: BP 149/84; PULSE 67; RESP 18; O2SAT 97
[2024-02-09 13:30] LABS: Alanine Aminotransferase 32 U/L (6-35); Albumin Level 4.8 g/dL (3.5-5.1); Alkaline Phosphatase 72 U/L (38-126); Anion Gap 9 mmol/L (4-12); Aspartate Amino Transferase 30 U/L (14-36); Blood Urea Nitrogen 17 mg/dL (7-17); Calcium 9.3 mg/dL (8.4-10.2); Carbon Dioxide 24 mmol/L (22-30); Chloride 104 mmol/L (98-107); Estimated CRCL calculation 81 ml/min; Estimated Glomerular Filt Rate > 60; Glucose 149 mg/dL (65-110); Lipase 198 U/L (23-300); Potassium 4.4 mmol/L (3.4-5.0); Sodium 137 mmol/L (137-145)
--- NOTE | 2024-02-09 14:17 | ED.NAVMDI ---
HPI - Nausea/Vomiting/Diarrhea General Chief complaint: Nausea/Vomiting/Diarrhea Stated complaint: nausea/vomiting Time Seen by Provider: 02/09/24 13:20 Source: patient Mode of arrival: ambulatory Limitations: no limitations History of Present Illness HPI Narrative: Patient presents with nausea and vomiting beginning this morning. She denies fever, diarrhea, pain. She notes that she feels like she did when she was diagnosed with pancreatitis previously. She does not know how many times she has vomited, she has lost count. It has been nonbloody and nonbilious, seemingly occurring every hour. No sick contacts. She does use marijuana daily. Related Data Home Medications Medication Instructions Recorded Confirmed azelastine 137 mcg-fluticasone 50 1 spray intranasal BID PRN Allergy 01/11/24 01/11/24 mcg/spray nasal spray (Dymista) Symptoms omeprazole 10 mg capsule,delayed 10 mg PO DAILY PRN Gastric Reflux 01/11/24 01/11/24 release Allergies Allergy/AdvReac Type Severity Reaction Status Date / Time clarithromycin Allergy Unknown Unknown Verified 02/09/24 11:11 Penicillins Allergy Unknown Unknown Verified 02/09/24 11:11 Sulfa (Sulfonamide Allergy Unknown Unknown Verified 02/09/24 11:11 Antibiotics) sulfanilamide Allergy Unknown Unknown Verified 02/09/24 11:11 [facility] Past Medical History Medical History Allergies Anxiety Asthma Hyperlipidemia Pancreatitis Surgical History Surgical History (Updated 01/13/24 @ 00:26 by Meera Katz MD) History of hysterectomy 2002 Family History Family History Mother Family history of renal cell carcinoma H/O kidney removal Father , cancer Sibling Depression Hyperlipidemia Hypertension Social History Social History Social History: Patient currently lives in a house with her spouse. She has never had any kids. She drinks 3 times a week and has approximately 2 drinks each setting. She does use marijuana approximately every other day. Has a history of tobacco use for approximately 20 years with 1 pack per day. She has not smoked for approximately 20 years. 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 Gender identity (if verbalized by the patient): Female Spiritual care concerns: No Exam Narrative: GENERAL: Well-appearing, well-nourished HEAD: Normocephalic, atraumatic. EYES: Non injected, non icteric ENT: Nares clear, no rhinorrhea or epistaxis. NECK: Supple. CHEST: Speaking in full sentences. No respiratory distress. HEART: Regular rate and rhythm. . ABDOMEN: Soft, nondistended. No tenderness to palpation. Abdomen is without rigidity or guarding. EXTREMITIES: Normal range of motion. No edema. SKIN: Warm, dry, no rash. NEURO: No focal deficits. Alert and oriented x3. Ambulates with steady gait. PSYCH: Normal mood and affect. Course Vital Signs Vital signs: Vital Signs Temperature 97.6 F 02/09/24 11:25 Pulse Rate 65 02/09/24 11:25 Respiratory Rate 18 02/09/24 11:25 Blood Pressure 150/74 H 02/09/24 11:25 Pulse Oximetry 98 02/09/24 11:25 Oxyge
[2024-02-09] MEDS: SODIUM CHLORIDE 0.9% IV 1,000 ML 999 ML IV CONT (14:44)
[2024-02-09] MEDS: ONDANSETRON INJ 4 MG/2 ML VIAL IV PUSH (14:44)
[2024-02-09 14:47] LABS: Magnesium 2.2 mg/dL (1.6-2.3)
[2024-02-09 14:50] VITALS: BP 159/79; PULSE 61; RESP 16; O2SAT 98
[2024-02-09 15:07] LABS: Influenza A QL RT-PCR Negative (Negative); Influenza B QL RT-PCR Negative (Negative); RSV RNA, RT-PCR Negative (Negative); SARS-CoV-2 RNA PCR Negative (Negative)
[2024-02-09] MEDS: PROCHLORPERAZINE EDISYLATE 10 MG/2 ML VIAL IV PUSH (15:47)
[2024-02-09 16:48] VITALS: BP 161/89; PULSE 73; RESP 15; O2SAT 98
[2024-02-09 17:27] LABS: Appearance Urine Clear (Clear); Bacteria Urine None Seen /hpf; Bilirubin Urine Negative (Negative); Blood Urine Negative (Negative); Color Urine Yellow (Yellow); Glucose Urine UA Negative (Negative); Ketones Urine 4+ mg/dL (Negative); Leukocyte Esterase Ur Negative LEU/UL (Negative); Nitrate Urine Negative (Negative); Non Pathogenic Casts 0-2; Protein Urine Trace mg/dL (Negative); RBC Urine 0-2 /hpf (0-2); Specific Grav Ur 1.025 (1.001-1.035); Squamous Epithelial Cell Urine Occasional /hpf (Few); Urobilinogen Urine 0.2 mg/dL (<2.0); WBC Urine 0-5 /hpf (0-3)
[2024-02-09 17:30] LABS: Add Urine Microscopic? YES
[2024-02-09 17:51] VITALS: BP 158/80; PULSE 86; RESP 18; O2SAT 98
[2024-02-09 18:18] VITALS: BP 165/82; PULSE 83; RESP 18; TEMP 36.8; O2SAT 99
== END 2024-02-09 18:20 | disposition home or self-care (01) ==
PROVIDERS: Emergency Medicine; Emergency Provider Student in an Organized Health Care Education/Training Program; PCP Family Medicine
DX: R11.2 Nausea with vomiting, unspecified (principal); D72.829 Elevated white blood cell count, unspecified; R73.9 Hyperglycemia, unspecified; Z20.822 Contact with and (suspected) exposure to COVID-19; J45.909 Unspecified asthma, uncomplicated; E78.5 Hyperlipidemia, unspecified; Z87.891 Personal history of nicotine dependence; Z90.710 Acquired absence of both cervix and uterus
CPT/HCPCS: 36415; 80053; 81001; 83690; 83735; 85025; 87637; 96361; 96374; 96375; 99284; J0780; J2405; J7030

== ENCOUNTER 2024-02-16 08:30 | Emergency (ER) | payer OTHER, SELFPAY ==
--- NOTE | ~2024-02-16 | XR_ITS ---
EXAMINATION: XR abdomen/kub 1V DATE: 02/16/2024 08:59 INDICATION: Constipation TECHNIQUE: A supine view of the abdomen on 2 radiographs was obtained. COMPARISON: CT dated 01/11/2024 and 04/21/2018 FINDINGS: Moderate amount of stool scattered throughout the colon predominantly in the cecum and descending col on. No dilated gas-filled loops of bowel to suggest obstruction. Large sclerotic bone islands at the right sacral ala which is been present since 04/21/2018. Surgical clips in the right hemipelvis. Mild lumbar levocurvature with mild spondylosis. Visualized lung bases are clear. Heart size is normal. IMPRESSION: 1. Nonobstructive bowel gas pattern with moderate amount of primarily proximal colonic stool. Reviewed, dictated and finalized at location A.
--- NOTE | 2024-02-16 08:35 | ED.ABDPAIN ---
HPI - Abdominal Pain General Chief Complaint: Abdominal Pain Stated Complaint: Constipation Time Seen by Provider: 02/16/24 09:16 Source: patient and RN notes reviewed Mode of arrival: ambulatory Limitations: no limitations History of Present Illness HPI narrative: 58-year-old female presents with concern for constipation. She reports it has been 1 week since she had a bowel movement. Reports she has used stool softeners, has done to enemas today. She has not tried any stimulant laxatives or osmotic laxatives. She reports she has been taking Compazine after having pancreatitis. She reports she was told the Compazine could cause constipation so she started taking the stool softeners when she started taking the Compazine. She reports nausea. She reports some vomiting earlier in the week. She denies abdominal pain, fever. She reports she had bee on semaglutide which she stops several weeks ago. MD elicited complaint: other (Constipation) Related Data Home Medications Medication Instructions Recorded Confirmed azelastine 137 mcg-fluticasone 50 1 spray intranasal BID Allergy 01/11/24 02/16/24 mcg/spray nasal spray (Dymista) Symptoms ondansetron 4 mg disintegrating 4 mg PO Q8H nausea and vomiting 02/16/24 02/16/24 tablet prochlorperazine maleate 10 mg mg 02/16/24 tablet Allergies Allergy/AdvReac Type Severity Reaction Status Date / Time clarithromycin Allergy Unknown Unknown Verified 02/16/24 08:44 Penicillins Allergy Unknown Unknown Verified 02/16/24 08:44 Sulfa (Sulfonamide Allergy Unknown Unknown Verified 02/16/24 08:44 Antibiotics) sulfanilamide Allergy Unknown Unknown Verified 02/16/24 08:44 Review of Systems Review of Systems: CONSTITUTIONAL: Denies malaise, chills, sweats, or fever. ENT: Denies rhinorrhea, congestion, sinus pain, otalgia or sore throat. CARDIOVASCULAR: Denies chest pain, palpitations, or edema. RESPIRATORY: Denies cough or dyspnea. GASTROINTESTINAL: Denies abdominal pain, vomiting, diarrhea, bloody, or mucous stools. Reports constipation and nausea GENITOURINARY: Denies dysuria or hematuria. MUSCULOSKELETAL: Denies myalgia. NEUROLOGIC: Denies headache. All systems reviewed & are unremarkable except as noted in HPI and below PMFSH Past Medical History Medical History Allergies Anxiety Asthma Hyperlipidemia Pancreatitis Surgical History Surgical History History of hysterectomy 2002 Family History Family History Mother Family history of renal cell carcinoma H/O kidney removal Father , cancer Sibling Depression Hyperlipidemia Hypertension Social History Social History Social History: Patient currently lives in a house with her spouse. She has never had any kids. She drinks 3 times a week and has approximately 2 drinks each setting. She does use marijuana approximately every other day. Has a history of tobacco use for approximately 20 years with 1 pack per day. She has not smoked for approximately 20 years. 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
[2024-02-16 08:39] VITALS: BP 139/80; PULSE 66; RESP 18; TEMP 36.3; O2SAT 98
== END 2024-02-16 09:27 | disposition home or self-care (01) ==
PROVIDERS: Emergency Provider Nurse Practitioner; PCP Family Medicine
DX: K59.00 Constipation, unspecified (principal); F41.9 Anxiety disorder, unspecified; J45.909 Unspecified asthma, uncomplicated; E78.5 Hyperlipidemia, unspecified; Z87.891 Personal history of nicotine dependence
CPT/HCPCS: 74018; 99213; G0463

== ENCOUNTER 2024-08-05 14:56 | Outpatient (CLI) | payer OTHER, SELFPAY ==
--- NOTE | ~2024-08-05 | DEXA_ITS ---
Bone Density Report Name: LILLY BOYKIN Age: 59 Sex: Female Ethnicity: White Date of : 1965 Indication: postmenopausal; screening for osteoporosis; asthma or emphysema; hysterectomy; Referring Provider: MAGALY CARMICHAEL Study: Bone densitometry was performed. Exam Date: August 05, 2024 Accession number: [id number] Bone Density: Region BMD T-score Z-score Classification AP Spine(L1-L4) 0.957 -0.8 0.7 Normal Femoral Neck (Left) 0.678 -1.5 -0.2 Osteopenia Total Hip (Left) 0.846 -0.8 0.2 Normal Femoral Neck (Right) 0.695 -1.4 -0.1 Osteopenia Total Hip (Right) 0.868 -0.6 0.4 Normal Total Hip Mean 0.857 -0.7 0.3 Normal World Health Organization criteria for BMD impression classify patients as: Normal (T-score at or above -1.0), Osteopenia (T-score between -1.0 and -2.5), or Osteoporosis (T-score at or below -2.5). 10-year Fracture Risk(1): Major Osteoporotic Fracture 8.2% Hip Fracture 0.7% Reported Risk Factors: [place] (), Neck BMD=0.678, BMI=27.7 (1) FRAX(R) Version 3.08. Fracture probability calculated for an untreated patient. Fracture probability may be lower if the patient has received treatment. Clinical Information Provided by Patient: Has used the following medications: Vitamin D Has the following medical conditions: Asthma or Emphysema, Hysterectomy Patient maximum height was 62.5 Menopause Age: 38 Drinks caffeinated beverages Onset of menses at age 11 Number of children 0 Impression: The patient has low bone mass, based on the Left Femoral Neck T-score. The patient has an estimated ten-year risk of hip fracture of 0.7% and an estimated ten-year risk of major fracture of 8.2%, based on the WHO FRAX algorithm. Discussion: BONE DENSITY IS LOW AT ONE OR MORE SKELETAL SITES. This patient's lowest T-score is low at one or more skeletal sites. It meets the World Health Organization's (WHO) criteria for ?low bone mass? (T-score between -1.0 and -2.5). The patient's 10-year risk of fracture as calculated by FRAX is less than the threshold where pharmacological therapy is recommended by the National Osteoporosis Foundation (NOF). However, all treatment decisions require clinical judgment and consideration of individual patient factors, including patient preferences, comorbidities, previous drug use, risk factors not captured in the FRAX model (e.g., frailty, falls, vitamin D deficiency, increased bone turnover, interval significant decline in bone density) and possible under or overestimation of fracture risk by FRAX. The patient should follow a healthful lifestyle (good nutrition with adequate calcium and vitamin D, and appropriate weight-bearing exercise). Follow-Up: Consider repeating this study in 2 to 3 years to reassess this patient's status, or sooner if there is some new clinical indication. Reported by: FLORES on 08/05/2024 4:19:00 PM. Reviewed, dictated and finalized at location AMely ARREOLA
== END 2024-08-05 14:57 | disposition home or self-care (01) ==
PROVIDERS: PCP Family Medicine; Visit Provider Obstetrics & Gynecology
DX: M85.89 Other specified disorders of bone density and structure, multiple sites (principal)
CPT/HCPCS: 77080

== ENCOUNTER 2024-10-27 15:09 | Outpatient (CLI) | payer OTHER, SELFPAY ==
--- NOTE | ~2024-10-27 | MM_ITS ---
EXAMINATION: MM screening [facility] BI w errol HISTORY: Screening mammogram TECHNIQUE: Craniocaudal and mediolateral oblique 3-D tomosynthesis images were obtained and synthetic 2-D images were generated. CAD analysis was submitted and interpreted. COMPARISON: 03/18/2023, 02/04/2022, 11/02/2019 BREAST PARENCHYMAL COMPOSITION:Dense: The breasts are heterogeneously dense, which may obscure small masses. FINDINGS: No suspicious mass, calcification, or architectural distortion are identified in either monica ast to suggest malignancy. There has been no suspicious interval change. IMPRESSION: No mammographic evidence of malignancy. Recommend routine screening mammography in one year. BI-RADS Category 1: Negative Reviewed, dictated and finalized at location . TY PHYSICIAN
== END 2024-10-27 15:10 | disposition home or self-care (01) ==
LOC: ANHIMG 15:11
PROVIDERS: PCP Family Medicine; Visit Provider Nurse Practitioner Obstetrics & Gynecology
DX: Z12.31 Encounter for screening mammogram for malignant neoplasm of breast (principal)
CPT/HCPCS: 77063; 77067

== ENCOUNTER 2025-02-07 00:51 | Day surgery (SDC) | payer OTHER, SELFPAY ==
[2025-01-31 12:41] VITALS: BMI 27.5
--- OUTSIDE RECORDS SUMMARY | 2025-02-07 00:54 | XMS_ITS | Encounter Summary ---
Author Organization [facility] Address [address] [place] [address] Care Team Providers Care Machine Slat Basket Maker Name Role Phone Trent Vazquez MD Primary Care Provider [phone] Encounter Details Date Type Department Care Team (Latest Contact Info) Description 08/14/2006 Outpatient Historical HIS 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 [address] PCP - General 11/02/09 documented as of this encounter
--- OUTSIDE RECORDS SUMMARY | 2025-02-07 00:54 | XMS_ITS | Encounter Summary ---
Author Organization [facility] Address 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 [id number] PCP - General 11/02/09 documented as of this encounter
--- OUTSIDE RECORDS SUMMARY | 2025-02-07 00:54 | XMS_ITS | Encounter Summary ---
Author Organization [facility] Address 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 [id number] PCP - General 11/02/09 documented as of this encounter
--- OUTSIDE RECORDS SUMMARY | 2025-02-07 00:54 | XMS_ITS | Data Portability ---
Author Organization [facility] Address [address] [place] [address] Care Team Providers Care Roving Court Reporter Name Role Phone BETTY BAER Primary Care Provider Assessment Encounter Date Assessment Date Assessment LastModified by Organization Details LastModified Time 12/11/2021 12/11/2021 Annual gynecological exam performed. Patient will come back in a year unless there are new symptoms. Not available 12/11/2021 10:18:06 02/18/2023 02/18/2023 Annual gynecological exam performed. Patient will come back in a year unless there are new symptoms. Not available 02/18/2023 16:29:44 02/24/2024 02/24/2024 Annual gynecological exam performed. Patient will come back in a year unless there are new symptoms. Not available 02/24/2024 16:25:03 Plan of Treatment Reminders Order Date Submit Date Provider Last Modified By Organization Details Last Modified Time Details Appointments None recorded. Lab None recorded. Referral None recorded. Procedures None recorded. Surgeries None recorded. Imaging MAMMO, screening, bilateral 2023 024 [email or web address] [facility], [address], [place], [address], 4 08:55:03 DEXA, axial skeleton + vertebral fracture assessment 2023 024 [email or web address] [facility], [address], [place], [address], 4 11:13:59 MAMMO, screening, bilateral 2022 023 [email or web address] [facility], [address], [place], [address], 3 11:06:54 Medication Orders None recorded. Patient TargetsNo targets recorded. Patient InstructionsNo instructions recorded. Reason for Referral None Reported. Results Created Date Observation Date Name Description Value Unit Range Abnormal Flag Note LastModifiedBy Organization Detail LastModifiedTime 02/06/20 22 02/04/2022 MAMMO , scree diogo, bilat eral No observ ation record ed. [facility] [address], [place], [address], 02/19/2022 09:51:12 02/06/20 22 02/04/2022 MAMMO , scree diogo, bilat eral No observ ation record ed. [facility] [address], [place], [address], 02/19/2022 09:36:42 02/19/20 22 02/04/2022 MAMMO , scree diogo, bilat eral No observ ation record ed. [address], [place], [address], 02/20/2022 15:15:30 02/19/20 22 02/04/2022 MAMMO , scree diogo, bilat eral No observ ation record ed. [address] [facility] [address], [place], [address], 02/22/2022 12:17:57 03/19/20 22 03/19/2022 MAMMO , diagn ostic , digit al, bilat eral No observ ation record ed. [facility] [address], [place], [address], 04/02/2022 09:53:05 03/19/20 23 03/18/2023 MAMMO , scree diogo, bilat eral No observ ation record ed. [email or web address] [address], [place], [address], 02/24/2024 17:14:40 08/06/20 24 08/05/2024 DEXA, axial skele ton + verte bral fract ure asses sment No observ ation record ed. [email or web address] [facility] [address], [place], [address], 08/10/2024 10:00:35 10/27/19 25 10/27/2024 MAMMO , scree diogo, bilat eral No observ ation record ed. [facility] [address] [facility] [address], [place], [address], 10/27/2024 17:39:11 Result Notes None recorded. Procedures Surgical History Date Name Laterality Status Provider Name and Address Organization Details Recorded Time 03/18/20 23 Date of Last Mammogram completed Marni [facility] 02/24/2024 16:27:10 11/14/19 21 Date of Last Pap Smear completed Marii Brown [facility] 12/11/2021 10:19:19 11/14/19 20 Most Recent Bone Density completed Marii Brown [facility] 12/11/2021 10:19:19 06/11/20 16 [facility] 02/24/2024 16:25:50 10/13/19 16 Date of Last Colonoscopy completed Marni [facility] 02/24/2024 16:27:33 10/13/19 03 Total Hysterectomy completed [facility] 02/24/2024 16:27:47 Hysteroscopy completed Marii Brown [facility] 12/11/2021 10:19:26 Imaging Results Imaging Date Name Status LastModified by [facility] Details LastModified Time 02/04/2022 MAMMO, screening, bilateral completed [facility] [address], [place], [address], 02/19/2022 09:51:12 02/04/2022 MAMMO, screening, bilateral completed [facility] [address], [place], [address], 02/19/2022 09:36:42 02/04/2022 MAMMO, screening, bilateral completed [email or web address] [facility] [address], [place], [address], 02/20/2022 15:15:30 02/04/2022 MAMMO, screening, bilateral completed [email or web address] [facility] [address], [place], [address], 02/22/2022 12:17:57 03/19/2022 MAMMO, diagnostic, digital, bilateral completed [facility] [address], [place], [address], 04/02/2022 09:53:05 03/18/2023 MAMMO, screening, bilateral completed [email or web address] [facility] [address] [facility] [address], [place], [address], 02/24/2024 17:14:40 08/05/2024 DEXA, axial skeleton + vertebral fracture assessment completed [address] [facility], [place], [address], 08/10/2024 10:00:35 10/27/2024 MAMMO, screening, bilateral active [address], [place], [address], 10/27/2024 17:39:11 Procedure Notes None recorded. Medical Equipment None Reported. Allergies Allergen ID Allergen Name Allergen Category Reaction Reaction Severity Criticality Documentation Date Start Date Code Code System Note Provider Name and Address Organization Details Recorded Time 61906 Penicilli n Not available Not available Not available Not available 12/11/2021 97519 RxNorm Marii Brown [facility] 2 10:19:06 Medications Name Sig Start Date Stop Date Status Note LastModified by Organization Details LastModified Time prochlorper azine maleate 10 mg tablet TAKE 1 TABLET BY MOUTH EVERY 6 HOURS NEEDED FOR NAUSEA OR VOMITING active Not Available Not Available No t Available omeprazole 40 mg capsule,del ayed release TAKE 1 CAPSULE BY MOUTH DAILY active Not Available Not Available No t Available alprazolam 0.25 mg tablet TAKE 1 TABLET BY MOUTH DAILY NEEDED FOR ANXIETY active Not Available Not Available No t Available cefuroxime axetil 500 mg tablet TAKE 1 TABLET BY MOUTH EVERY 12 HOURS 02/18 completed Not Available Not Available Not Available albuterol sulfate HFA 90 mcg/actuati on aerosol inhaler INHALE 1 PUFF BY MOUTH EVERY 4 HOURS NEEDED FOR SHORTNESS OF BREATH OR WHEEZING active Not Available Not Available No t Available ondansetron 4 mg disintegrat ing tablet DISSOLVE 1 TABLET ON THE TONGUE EVERY 8 HOURS NEEDED FOR NAUSEA OR VOMITING active Not Available Not Available No t Available cefdinir 300 mg capsule TAKE 1 CAPSULE BY MOUTH EVERY 12 HOURS FOR 10 DAYS 02/23 completed Not Available Not Available Not Available cyclobenzap rine 7.5 mg tablet TAKE 1 TABLET BY MOUTH EVERY NIGHT AT BEDTIME NEEDED FOR MUSCLE SPASM 02/18 completed Not Available Not Available Not Available azelastine 137 mcg-flutica sone 50 mcg/spray nasal spray SHAKE LIQUID AND USE 1 SPRAY IN EACH NOSTRIL TWICE DAILY active Not Available Not Available No t Available Breo Ellipta 200 mcg-25 mcg/dose powder for inhalation INHALE 1 PUFF BY MOUTH EVERY DAY active Not Available Not Available No t Available vitamin D3 2,000 unit-folic acid 1 mg tablet Take by oral route. active Not Available Not Available No t Available rosuvastati n 10 mg sprinkle capsule 02/23 completed Not Available Not Available Not Available Vitals Date Recorded Body height Body mass index (BMI) Body weight Provider Name and Address Organization Details Last Updated DateTime 12/11/2021 159.39 cm 31.4 kg/m2 77055.26 g Marii Brown [facility] 12/11/2021 10:19:01 Date Recorded Systolic blood pressure Diastolic blood pressure Provider Name and Address Organization Details Last Updated DateTime 12/11/2021 124 mm[Hg] 80 mm[Hg] Cathy Bullock, [facility] [address], [place], [address], [facility] 12/11/2021 10:47:59 Date Recorded Body height Body mass index (BMI) Body weight Provider Name and Address Organization Details Last Updated DateTime 02/18/2023 159.39 cm 30.9 kg/m2 88984.48 g Marni Roe [facility] 02/18/2023 16:30:02 Date Recorded Systolic blood pressure Diastolic blood pressure Provider Name and Address Organization Details Last Updated DateTime 02/18/2023 130 mm[Hg] 80 mm[Hg] Ctahy Bullock, [facility] [address], [place], [address], [facility] 02/18/2023 16:32:29 Date Recorded Body height Body mass index (BMI) Body weight Systolic blood pressure Diastolic blood pressure Provider Name and Address Organization Details Last Updated DateTime 02/24/2024 159.39 cm 29.8 kg/m2 89748.93 g 128 mm[Hg] 82 mm[Hg] Marni Roe [facility] 16:25:36 Social History Question Answer Notes LastModified by Organizat ion Details LastModified Time Tobacco Smoking Status Former Smoker Gudelia Trav lawrence, [facility] 02/18/2023 16:21:40 Do You Have An Advance Directive? No Information n ot available 12/11/2021 What Is Your Level Of Alcohol Consumption? Moderate Information not available 12/11/2021 How Many Years Have You Consumed Alcohol? 30 Information not available 12/11/2021 Are You Blind Or Do You Have Difficulty Seeing? No Information n ot available 12/11/2021 What Is Your Level Of Caffeine Consumption? Moderate Information not available 12/11/2021 In The 14 Days Before Symptom Onset, Have You Had Close Contact With A Laboratory-confirm ed COVID-19 While That Case Was Ill? No Information n ot available 12/11/2021 In The 14 Days Before Symptom Onset, Have You Had Close Contact With A Person Who Is Under Investigation For COVID-19 While That Person Was Ill? No Information not available 12/11/2021 Have You Been To An Area Known To Be High Risk For COVID-19? No Information not available 12/11/2021 Are You Deaf Or Do You Have Serious Difficulty Hearing? No Information not available 12/11/2021 What Type Of Diet Are You Following? REGULAR Information n ot available 12/11/2021 What Is The Highest Grade Or Level Of School You Have Completed Or The Highest Degree You Have Received? 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 Yes Information not available 12/11/2021 Do You Use Protection During Sex? No Information not available 12/11/2021 Do You Use Your Seat Belt Or Car Seat Routinely? Yes Information not available 12/11/2021 Do You Have Smoke And Carbon Monoxide Detectors In Your Home? Yes Information not available 12/11/2021 At What Age Did You Start Smoking Tobacco? 18 Information not available 12/11/2021 How Much Tobacco Do You Smoke? No Information not available 12/11/2021 Do You Feel Stressed (tense, Restless, Nervous, Or Anxious, Or Unable To Sleep At Night)? [id number] Information not available 12/11/2021 Do You Use Any Illicit Or Recreational Drugs? Yes Information not available 12/11/2021 Do You Use Sunscreen Routinely? No Information not available 12/11/2021 How Many Years Have You Smoked Tobacco? 35 Information not available 12/11/2021 Have You Used IV Drugs? No Information not available 12/11/2021 Sex: Unknown Functional Status Question Answer Note LastModified by Organizat ion Details LastModified Time Do you have difficulty walking or climbing stairs? No [email or web address] Information not available 02/18/2023 Are you able to walk? YESWOREST Information not available 12/11/2021 Are you able to care for yourself? Yes [email or web address] Information not available 02/18/2023 Do you have difficulty dressing or bathing? No [email or web address] Information not available 02/18/2023 What is your exercise level? Occasional Information not available 12/11/2021 Mental Status None recorded. Family History Relationship Description Onset Age of this Age Resolved Age Notes LastModified by Organization Details LastModified Time Brother Asthma Not available 10:19:09 Brother Anxiety disorder Not available 2021 10:19:09 Mother Malignant tumor of kidney [email or web address] Not available 2023 16:19:19 Medical History Condition Response Anxiety Disorder Y High Cholesterol Y Gynecological History Statement/Question Response Date of Last Mammogram 03/18/2023 On BCP's at Conception? N N STIs/STDs N Was last menstrual period normal Y HPV Vaccine N Current Control Method Hysterectom y If Post Menopausal, Age at Menopause [age] Date of Last Colonoscopy 10/13/2015 Most Recent Bone Density 11/14/2019 Sexually Active? Y Menses Monthly N Age of first menstrual cycle 11 Date of Last Pap Smear 11/14/2020 Sexual Problems? N LMP Unknown 06/11/2016 N Obstetrics History GPAL:G 0 P 0 0 0 0 Type Value Living 0 Total 0 Past Encounters Encounter ID Performer Location Encounter Start Date Encounter Closed Date Diagnosis/Indication Diagnosis SNOMED-CT Code Diagnosis ICD10 Code Diagnosis Note [id number] Cathy Bullock [facility] [address] [address] 12/11/2021 09:46:13 12/11/2021 11:24:45 Gynecologic examination 26332214 Z01.419 Take Calcium with Vitamin D 12-1500mg daily. Do monthly self breast exams. It is advised to get annual flu shot in the fall and she could obtain at [facility] or [facility] care clinic. If you haven't received the Tdap vaccine in the last 10 years you should obtain one as well. Have mammogram yearly, bone density every 2-3 years and colonoscop y every 5-10 years depending on findings and history. Engage in daily exercise of low impact aerobic exercise 45-60 minutes 4-5 times weekly. Avoid tobacco and illicit drugs as well as using moderation with alcohol intake less than 1-2 8 oz beverages daily. This lifestyle behavior pattern will lead to less health conditions and longer life span. If BMI greater than 25 weight watchers or dietary consult advised. Questions have been answered. Patient appears to understand instructio ns, but if you have any further questions call or respond to this email USPSTF recommends against screening for cervical cancer in women older than 65yo/Full hysterecto my for non-cancer indication s, who have had adequate prior screening & are not otherwise at high risk for cervical cancer. Mammo ordereddex a utdColon age 51yo utdRecomme nded seeing PCP for Rx Xanax prn useDecline d std screenGene tic screen discussed [id number] Cathy Bullock , [facility] [address] [address] 02/18/2023 16:20:40 02/18/2023 16:48:03 Gynecologic examination 31882241 Z01.419 Take Calcium with Vitamin D 12-1500mg daily. Do monthly self breast exams. It is advised to get annual flu shot in the fall and she could obtain at [facility] or [facility] clinic. If you haven't received the Tdap vaccine in the last 10 years you should obtain one as well. Have mammogram yearly, bone density every 2-3 years and colonoscop y every 5-10 years depending on findings and history. Engage in daily exercise of low impact aerobic exercise 45-60 minutes 4-5 times weekly. Avoid tobacco and illicit drugs as well as using moderation with alcohol intake less than 1-2 8 oz beverages daily. This lifestyle behavior pattern will lead to less health conditions and longer life span. If BMI greater than 25 weight watchers or dietary consult advised. Questions have been answered. Patient appears to understand instructio ns, but if you have any further questions call or respond to this email USPSTF recommends against screening for cervical cancer in women older than 65yo/Full hysterecto my for non-cancer indication s, who have had adequate prior screening & are not otherwise at high risk for cervical cancer. STD Screen declined Genetic Screen discussed Colon Screen due next 2023 Dexa Screen due 2023 [facility] UTD PCPMammo ordered Postmenopa usal osteopenia [id number] M85.80 Due next year 2023 Screening mammography 24 817030 Z12.31 [id number] Cathy Bullock , [facility] [address] [address] 02/24/2024 16:18:40 02/25/2024 11:42:36 Gynecologic examination [id number] Z01.419 Take Calcium with Vitamin D 12-1500mg daily. Do monthly self breast exams. It is advised to get annual flu shot in the fall and she could obtain at [facility] or [facility] care clinic. If you haven't received the Tdap vaccine in the last 10 years you should obtain one as well. Have mammogram yearly, bone density every 2-3 years and colonoscop y every 5-10 years depending on findings and history. Engage in daily exercise of low impact aerobic exercise 45-60 minutes 4-5 times weekly. Avoid tobacco and illicit drugs as well as using moderation with alcohol intake less than 1-2 8 oz beverages daily. This lifestyle behavior pattern will lead to less health conditions and longer life span. If BMI greater than 25 weight watchers or dietary consult advised. Questions have been answered. Patient appears to understand instructio ns, but if you have any further questions call or respond to this email USPSTF recommends against screening for cervical cancer in women older than 65yo/Full hysterecto my for non-cancer indication s, who have had adequate prior screening & are not otherwise at high risk for cervical cancer. STD Screen declinedGe netic Screen discussedC olon Screen due 2023--has appt with PCP and will ensure this is orderedDex a Screen orderedRou didi Labs UTD PCPMammo ordered Screening mammography 24 908117 Z12.31 Postmenopa usal osteopenia 742400821 M85.80 Due next 2023 Health Concerns Section Related Observation LastModified by Organization Detai ls LastModified Time None Recorded Concern Status LastModified by Organization Details LastModified Time None Recorded Advance Directives Directive N: Payers Encounter Date Sequence Insurance Name Policy Number Policy Cui Covered Member ID Cui Member ID Guarantor Name 12/11/2021 2 [employer] - DOS PRIOR TO 2024 - [employer] - PRIME () Jamilah Justin [id number] Jamilah Justin 12/11/2021 1 [employer] - CHOICE (POS II) [id number] Jamilah Justin [id number] Jamilah Justin 02/18/2023 2 [employer] - DOS PRIOR TO 2024 - [employer] - PRIME () Jamilah Justin [id number] Jamilah Justin 02/18/2023 1 [employer] - CHOICE ([place] II) [id number] Jamilah Justin [id number] Jamilah Justin 02/24/2024 2 [employer] - DOS PRIOR TO 2024 - [employer] - PRIME () Jamilah Justin [id number] Jamilah Justin 02/24/2024 1 [employer] - CHOICE (POS II) [id number] Jamilah Justin [id number] Jamilah Justin Notes Date Note Type Note Provider Name and Address Organization Details Recorded Time 12/11/2021 text/html Annual Eyedotter Post-MenopausalRe ported bypatient.Krystyna eulalia Symptoms:no menopausal symptoms; normal vaginal lubrication Vaginal Bleeding:history of menopause having occurred; no history of post menopausal bleeding Urinary Symptoms:no hematuria; no incontinence; no nocturia; no urinary frequency Vulva:no genital lesion; no vulvar atrophy Vagina:normal vaginal discharge; no vaginal atrophy Breast:no breast lump; no nipple discharge; no breast pain Sexual Complaints:no sexual complaints Psychological Symptoms:no depression; no anxiety Preventive Measures:encourag e regular mammograms starting age 40; encourage self breast examination; encourage regular exercise; encourage no tobacco use; needs to schedule mammogram; history of [facility] [address], [place], [address], [facility] 12/11/2021 10:51:37 02/18/2023 text/html Annual Eyedotter Post-MenopausalRe ported bypatient.Menopau eulalia Symptoms:no menopausal symptoms; normal vaginal lubrication Vaginal Bleeding:history of menopause having occurred; no history of post menopausal bleeding Urinary Symptoms:no hematuria; no incontinence; no nocturia; no urinary frequency Vulva:no genital lesion; no vulvar atrophy Vagina:normal vaginal discharge; no vaginal atrophy Breast:no breast lump; no nipple discharge; no breast pain Sexual Complaints:no sexual complaints Psychological Symptoms:no depression; no anxiety Preventive Measures:encourag e regular mammograms starting age 40; encourage self breast examination; encourage regular exercise; encourage no tobacco use; needs to schedule mammogram; history of recent colonoscopy [facility] [address], [place], [address], [facility] 02/18/2023 16:43:48 02/24/2024 text/html Annual Eyedotter Post-MenopausalRe ported bypatient.Menopau eulalia Symptoms:no menopausal symptoms; normal vaginal lubrication Vaginal Bleeding:history of menopause having occurred; no history of post menopausal bleeding Urinary Symptoms:no hematuria; no incontinence; no nocturia; no urinary frequency Vulva:no genital lesion; no vulvar atrophy Vagina:normal vaginal discharge; no vaginal atrophy Breast:no breast lump; no nipple discharge; no breast pain Sexual Complaints:no sexual complaints Psychological Symptoms:no depression; no anxiety Preventive Measures:encourag e regular mammograms starting age 40; encourage self breast examination; encourage regular exercise; encourage no tobacco use; needs to schedule mammogram; history of recent colonoscopy; needs to schedule bone density [facility] [address], [place], [address], [facility] 02/24/2024 17:16:13 OBGyn Episode No OBEpisode recorded.
--- OUTSIDE RECORDS SUMMARY | 2025-02-07 00:54 | XMS_ITS | Encounter Summary ---
Author Organization [employer] Address 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 [place] [address] PCP - General 11/02/09 documented as of this encounter
--- OUTSIDE RECORDS SUMMARY | 2025-02-07 00:54 | XMS_ITS | Encounter Summary ---
Author Organization [employer] Address 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 [address] PCP - General 11/02/09 documented as of this encounter
--- OUTSIDE RECORDS SUMMARY | 2025-02-07 00:54 | XMS_ITS | Clinical Summary ---
Author Organization [facility] Address [address] [place] [address] Phone Care Team Providers Care Shot Man Name Role Phone Trent Vazquez MD Primary Care Provider [phone] Allergies Active Allergy Reactions Criticality Noted Date Comments Penicillins Unknown 04/23/2016 Sulfa (Sulfonamide Antibiotics) Unknown 04/12 Medications ATORVASTATIN CALCIUM (LIPITOR ORAL) Take by mouth. 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 Gender Identity Not on file Sexual Orientation Not on file Occupation Industry Job Start Date Job End Date Not on file Not on file Not on file Not on file Last Filed Vital Signs Vital Sign Reading Time Taken Comments Blood Pressure 119/79 05/08/2016 9:43 AM CDT Pulse 67 05/08/2016 9:43 AM CDT Temperature 36.4 C (97.5 F) 05/08/2016 9:25 AM CDT Respiratory Rate 16 05/08/2016 9:43 AM CDT Oxygen Saturation 98% 05/08/2016 9:43 AM CDT Inhaled Oxygen Concentration - - Weight 71.3 kg (157 lb 3.2 oz) 05/08/2016 8:10 A M CDT Height 160 cm (5' 3 ) 05/08/2016 8:10 AM CDT Body Mass Index 27.85 05/08/2016 8:10 AM CDT Plan of Treatment Health Maintenance Due Date Last Done Comments DTAP/TDAP/TD VACCINES (1 - Tdap) 1982 FIT-DNA Q 3 years 2008 FIT/FOBT Q 1 year 2008 Flex Sig/CT Colonography Q 5 years 2008 ZOSTER VACCINE (1 of 2) 2013 BREAST CANCER SCREENING 12/15/2021 12/16/19, 11/02/2019, 10/29/2018, Additional history exists INFLUENZA VACCINE (#1) 2024 07/01/2020 COLORECTAL SCREENING 05/08/2026 05/08/2016 Colorectal Cancer Screening 05/08/2026 RSV VACCINE (60+ or ) (1 - 1-dose 75+ series) 2038 Procedures Procedure Name Priority Date/Time Associated Diagnosis Comments MAMMO 3D BHAVANI SCREEN BILAT W OR WO CAD Routine 12/15/2020 9:10 AM TECHNICAL SUPERVISOR Breast cancer screening by mammogram from Last 3 Months or Most Recently Relevant to Health Maintenance Results * MAMMO SCRN BILAT 3D BHAVANI W OR WO CAD (12/15/2020 9:10 AM TECHNICAL SUPERVISOR) Anatomical Region Laterality Modality Breast Bilateral Mammography 12/15/2020 9:10 AM TECHNICAL SUPERVISOR Impressions 12/16/2020 3:14 PM TECHNICAL SUPERVISOR IMPRESSION: No evidence of malignancy in the right or left breast. OVERALL FINAL ASSESSMENT: BI-RADS CATEGORY 2 - Benign findings RECOMMENDATION: Screening mammogram in one year. Results will be sent to patient via lay letter by mail. DICTATION LOCATION: [facility] 12/16/2020 3:14 PM TECHNICAL SUPERVISOR BILATERAL DIGITAL SCREENING MAMMOGRAM WITH TOMOSYNTHESIS WITH COMPUTER AIDED DETECTION EXAM DATE: 12/15/2020 9:10 AM INDICATION: Breast cancer screening. TECHNIQUE: Low Dose full field Digital Breast tomosynthesis examination was performed with 2D and 3D acquisitions. Examination is read in conjunction with computer aided detection. CLINICAL HISTORY: 55-year-old asymptomatic female. No personal history of breast malignancy or prior breast procedure. Family history of breast cancer in maternal cousin. COMPARISON: 11/02/2019, 10/29/2018, 10/24/2017, 09/24/2016, 09/04/2015. BREAST COMPOSITION: The breasts are heterogeneously dense, which may obscure small masses. FINDINGS: Parenchymal pattern is stable. No new suspicious breast masses or definite findings of distortion. No suspicious mammographic or tomographic finding to suggest malignancy or significant interval change. CAD was used. Procedure Note Josefa Li MD - 12/16/2020 BILATERAL DIGITAL SCREENING MAMMOGRAM WITH TOMOSYNTHESIS WITH COMPUTER AIDED DETECTION EXAM DATE: 12/15/2020 9:10 AM INDICATION: Breast cancer screening. TECHNIQUE: Low Dose full field Digital Breast tomosynthesis examination was performed with 2D and 3D acquisitions. Examination is read in conjunction with computer aided detection. CLINICAL HISTORY: 55-year-old asymptomatic female. No personal history of breast malignancy or prior breast procedure. Family history of breast cancer in maternal cousin. COMPARISON: 11/02/2019, 10/29/2018, 10/24/2017, 09/24/2016, 09/04/2015. BREAST COMPOSITION: The breasts are heterogeneously dense, which may obscure small masses. FINDINGS: Parenchymal pattern is stable. No new suspicious breast masses or definite findings of distortion. No suspicious mammographic or tomographic finding to suggest malignancy or significant interval change. CAD was used. IMPRESSION: No evidence of malignancy in the right or left breast. OVERALL FINAL ASSESSMENT: BI-RADS CATEGORY 2 - Benign findings RECOMMENDATION: Screening mammogram in one year. Results will be sent to patient via lay letter by mail. DICTATION LOCATION: [facility] Pili Han MD MAMMO ORDERABLES Final Result from Last 3 Months or Most Recently Relevant to Health Maintenance Insurance [facility] Advance Directives For more information, please contact: [phone] * Full Code (Latest Code Status on File) Date Activated Date Inactivated Comments 05/08/2016 8:09 AM 05/08/2016 11:57 AM Care Teams Shot Man Relationship Specialty Start Date End Date Trent Vazquez MD [address] [place] [phone] PCP - General 11/02/09
--- OUTSIDE RECORDS SUMMARY | 2025-02-07 00:54 | XMS_ITS | Encounter Summary ---
Author Organization [facility] Address 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 [phone] PCP - General 11/02/09 documented as of this encounter
[2025-02-07 09:13] VITALS: BP 134/73; PULSE 62; RESP 16; TEMP 36.1; O2SAT 100; BMI 28.2
[2025-02-07] MEDS: LACTATED RINGERS 1,000 ML 150 ML IV CONT (09:24)
--- NOTE | 2025-02-07 09:44 | P.HP_ITS ---
History of Present Illness History of Present Illness Consent: Risks, benefits, and alternatives have been discussed and questions answered. Patient agrees to proceed with procedure. Chief complaint: Screening Narrative: Jamilah Anderson is a 59 year old female here for screening colonoscopy, last one 2015 Review of Systems Review of Systems: All systems reviewed & are unremarkable except as noted in HPI and below PMFSH Past Medical History Medical History Nausea after anesthesia entry error Pancreatitis Asthma Allergies Anxiety Elevated glucose Elevated ALT measurement Hyperlipidemia Elevated C-reactive protein (CRP) Surgical History Surgical History History of hysterectomy 2002 Family History Family History Mother Family history of renal cell carcinoma H/O kidney removal Father , cancer Sibling Depression Hyperlipidemia Hypertension Social History Social History Social History: Patient currently lives in a house with her spouse. She has never had any kids. She drinks 3 times a week and has approximately 2 drinks each setting. She does use marijuana approximately every other day. Has a history of tobacco use for approximately 20 years with 1 pack per day. She has not smoked for approximately 20 years. Years smoked: 30 Smoking status: Former smoker Tobacco type: cigarettes Second hand tobacco smoke exposure: Yes Smoking end date: 10/13/10 Alcohol intake: current Drinks per week: 7 Substance use: current Substance use type: marijuana Other substance usage details: smokes marijuana daily Do You Feel Safe in your Home?: Yes Lack of Transportation: No Lack of Food: Never True Current Housing: I Have Housing Concerned About Future Housing: No Difficulty Paying Gas/Electric Bills: No Difficulty Paying for Meds: No Currently Unemployed: No Education: Decline to Answer Difficulty w/ Childcare or Family Care: No Living arrangements: with family Occupation/Education: occupation 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 Gender identity (if verbalized by the patient): Female Spiritual care concerns: No Meds Home Medications and Allergies Home Medications ?Medication ?Instructions ?Recorded ?Confirmed ?Type alprazolam 0.25 mg tablet (Xanax) 0.25 mg PO DAILY PRN anxiety #30 05/22/23 01/31/25 Rx tabs albuterol sulfate 90 mcg/actuation 1 inh inhalation Q4H PRN shortness 01/23/24 01/31/25 Rx aerosol inhaler (ProAir HFA) of breath or wheezing #8.5 grams rosuvastatin 10 mg tablet (Crestor) 10 mg PO DAILY #90 tabs 08/02/24 02/07/25 Rx omeprazole 40 mg capsule,delayed 40 mg PO DAILY #30 caps 01/11/25 02/07/25 Rx release phentermine 37.5 mg tablet 37.5 mg PO DAILY #20 tabs 01/12/25 02/07/25 Rx montelukast 10 mg tablet 10 mg PO QHS #30 tabs 01/20/25 02/07/25 Rx (Singulair) Allergies Allergy/AdvReac Type Severity Reaction Status Date / Time clarithromycin Allergy Unknown Unknown Verified 02/07/25 09:12 Penicillins Allergy Unknown Unknown Verified 02/07/25 09:12 Sulfa (Sulfonamide Allergy Unknown Unknown Verified 02/07/25 09:12 Antibiotics) sulfanilamide Allergy Unknown Unknown Verified 02/07/25 09:12 Vital Signs Vital Signs - 24 hr 02/07/25 09:13 Temperature 97.0 F L Pulse Rate 62 Respiratory Rate 16 Blood Pressure 134/73 Pulse Oximetry 100 Oxygen Delivery Room Air Exam Const: General: comfortable and no acute distress HENMT: Face/Nose/Sinus: Normal nares present Eyes: General: appearance normal, both eyes and all related structures Neck: Neck: no JVD Resp: Auscultation: clear to auscultation bilaterally Cardio: Rate: regular rate Rhythm: regular rhythm GI: Inspection: non-distended GI Palp: Yes Soft to palpation Skin: General skin exam: normal color Neuro: General: gait normal Speech: normal speech Extrem: General: normal to inspection Psych: Mental Status: mental status grossly normal Assessment and Plan Assessment and plan (1) Screen for colon cancer: Code(s): Z12.11 - Encounter for screening for malignant neoplasm of colon Status: Acute Assessment and Plan: colonoscopy
--- NOTE | 2025-02-07 09:45 | WPDANESEPPF ---
Anes - Initial Pre Proc Eval Procedure: Operation Date: 02/07/25 10:30 Proposed Procedures p Screening Colonoscopy - Ricardo Bernard MD Date/Time: 02/07/25 09:45 Surgeon: Ricardo Bernard MD Pre Op Diagnosis: Screening Patient Data Age: 59 Gender: F Height: 1.6 m Weight: 72.3 kg Last Vital Signs Temp 97.0 F L 02/07/25 09:13 Pulse 62 02/07/25 09:13 Resp 16 02/07/25 09:13 BP 134/73 02/07/25 09:13 Pulse Ox 100 02/07/25 09:13 O2 Del Method Room Air 02/07/25 09:13 Allergies Allergy/AdvReac Type Severity Reaction Status Date / Time clarithromycin Allergy Unknown Unknown Verified 02/07/25 09:12 Penicillins Allergy Unknown Unknown Verified 02/07/25 09:12 Sulfa (Sulfonamide Allergy Unknown Unknown Verified 02/07/25 09:12 Antibiotics) sulfanilamide Allergy Unknown Unknown Verified 02/07/25 09:12 Home Medications ?Medication ?Instructions ?Recorded ?Confirmed ?Type alprazolam 0.25 mg tablet (Xanax) 0.25 mg PO DAILY PRN anxiety #30 05/22/23 01/31/25 Rx tabs albuterol sulfate 90 mcg/actuation 1 inh inhalation Q4H PRN shortness 01/23/24 01/31/25 Rx aerosol inhaler (ProAir HFA) of breath or wheezing #8.5 grams rosuvastatin 10 mg tablet (Crestor) 10 mg PO DAILY #90 tabs 08/02/24 02/07/25 Rx omeprazole 40 mg capsule,delayed 40 mg PO DAILY #30 caps 01/11/25 02/07/25 Rx release phentermine 37.5 mg tablet 37.5 mg PO DAILY #20 tabs 01/12/25 02/07/25 Rx montelukast 10 mg tablet 10 mg PO QHS #30 tabs 01/20/25 02/07/25 Rx (Singulair) Patient hx anesthesia problems: none Family hx anesthesia problems: none Results Review: All pre-operative results and documents have been reviewed as part of the pre-operative evaluation. [facility] Past Medical History Medical History Nausea after anesthesia entry error Pancreatitis Asthma Allergies Anxiety Elevated glucose Elevated ALT measurement Hyperlipidemia Elevated C-reactive protein (CRP) Surgical History Surgical History History of hysterectomy 2002 Family History Family History Mother Family history of renal cell carcinoma H/O kidney removal Father , cancer Sibling Depression Hyperlipidemia Hypertension Social History Social History Social History: Patient currently lives in a house with her spouse. She has never had any kids. She drinks 3 times a week and has approximately 2 drinks each setting. She does use marijuana approximately every other day. Has a history of tobacco use for approximately 20 years with 1 pack per day. She has not smoked for approximately 20 years. Years smoked: 30 Smoking status: Former smoker Tobacco type: cigarettes Second hand tobacco smoke exposure: Yes Smoking end date: 10/13/10 Alcohol intake: current Drinks per week: 7 Substance use: current Substance use type: marijuana Other substance usage details: smokes marijuana daily Do You Feel Safe in your Home?: Yes Lack of Transportation: No Lack of Food: Never True Current Housing: I Have Housing Concerned About Future Housing: No Difficulty Paying Gas/Electric Bills: No Difficulty Paying for Meds: No Currently Unemployed: No Education: Decline to Answer Difficulty w/ Childcare or Family Care: No Living arrangements: with family Occupation/Education: occupation 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 Gender identity (if verbalized by the patient): Female Spiritual care concerns: No Anes - Eval Final PreProcedure Day of Procedure 02/07/25 09:45 Patient weight: normal Lungs: normal air movement Airway: Mallampati scale class II Neurological: alert and oriented Last oral intake: >/= 8 hours ASA classification: II Emergent: no Anesthetic plan: proceed Anesthesia type and monitoring: general GIVS and standard monitoring Results Review: All pre-operative results and documents have been reviewed as part of the pre-operative evaluation. Hyperlipidemia. Informed Consent: The patient's anesthetic plan and its attendant risks and benefits were discussed with the patient/family/POA. Questions were solicited and answers provided to the satisfaction of the patient/family/POA.
[2025-02-07 10:03] VITALS: BP 118/59; PULSE 69; RESP 18; O2SAT 98
[2025-02-07 10:13] VITALS: BP 114/67; PULSE 66; RESP 18; O2SAT 99
[2025-02-07 10:23] VITALS: BP 118/73; PULSE 65; RESP 18; O2SAT 100
== END 2025-02-07 10:32 | disposition home or self-care (01) ==
PROVIDERS: PCP Family Medicine; Referring Provider Nurse Practitioner Family; Visit Provider Internal Medicine Gastroenterology
PROC: 0DJD8ZZ Inspection of Lower Intestinal Tract, Via Natural or Artificial Opening Endoscopic (ICD-10-PCS; CPT 45378; principal; 2025-02-07 10:30)
DX: Z12.11 Encounter for screening for malignant neoplasm of colon (principal); D12.2 Benign neoplasm of ascending colon; D12.3 Benign neoplasm of transverse colon; K64.8 Other hemorrhoids; K57.30 Diverticulosis of large intestine without perforation or abscess without bleeding; E78.5 Hyperlipidemia, unspecified; J45.909 Unspecified asthma, uncomplicated; Z87.891 Personal history of nicotine dependence; F41.9 Anxiety disorder, unspecified
CPT/HCPCS: 45380; 88305; J2003; J2704; J7120

== ENCOUNTER 2025-08-04 14:53 | Outpatient (CLI) | payer OTHER, SELFPAY ==
--- OUTSIDE RECORDS SUMMARY | 2025-08-04 15:59 | XMS_ITS | Encounter Summary ---
Author Organization [facility] Address 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 [address] PCP - General 11/02/09 documented as of this encounter
--- OUTSIDE RECORDS SUMMARY | 2025-08-04 15:59 | XMS_ITS | Encounter Summary ---
Author Organization [facility] Address [address] [place] [address] Care Team Providers Care Physical Integration Practitioner Name Role Phone Trent Vazquez MD Primary Care Provider [phone] Encounter Details Date Type Department Care Team (Latest Contact Info) Description 05/24/2004 Outpatient Historical [facility] CLARISSA Patel Jr., Ha Do MD NO ADDRESS ON FILE SCREENING MAMM-MAILG NEOPL-OTHER (Primary Dx) Social History Tobacco Use Types Packs/Day Years Used Date Smoking Tobacco: Never Assessed Comments Unknown Sex and Gender Information Value Date Recorded Sex Assigned at Not on file Legal Sex Female 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 [address] PCP - General 11/02/09 documented as of this encounter
--- OUTSIDE RECORDS SUMMARY | 2025-08-04 15:59 | XMS_ITS | Encounter Summary ---
Author Organization [facility] Address 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 [phone] PCP - General 11/02/09 documented as of this encounter
--- OUTSIDE RECORDS SUMMARY | 2025-08-04 15:59 | XMS_ITS | Clinical Summary ---
Author Organization [facility] Address [address] [place] [address] Phone Care Team Providers Care Propeller Layout Worker Name Role Phone Trent Vazquez MD Primary Care Provider [phone] Allergies Active Allergy Reactions Criticality Noted Date [...] on file Legal Sex Female 5:03 AM TRAINING MGR Gender Identity Not on file Sexual Orientation [...] A M CDT Height 160 cm (5' 3) 05/08/2016 8:10 AM CDT Body Mass Index [...] 10/29/2018, Additional history exists INFLUENZA VACCINE (#1) 2025 07/01/2020 COLORECTAL SCREENING 05/08/2026 05/08/2016 Colorectal Cancer Screening 05/08/2026 RSV VACCINE (60+ or ) (1 - 1-dose 75+ series) 2038 Procedures Procedure Name Priority Date/Time Associated Diagnosis Comments MAMMO 3D BHAVANI SCREEN BILAT W OR WO CAD Routine 12/15/2020 9:10 AM TRAINING MGR Breast cancer screening by mammogram from Last 3 Months or Most Recently Relevant to Health Maintenance Results * MAMMO SCRN BILAT 3D BHAVANI W OR WO CAD (12/15/2020 9:10 AM TRAINING MGR) Anatomical Region Laterality Modality Breast Bilateral Mammography 12/15/2020 9:10 AM TRAINING MGR Impressions 12/16/2020 3:14 PM TRAINING MGR IMPRESSION: No evidence of malignancy in the right or left breast. OVERALL FINAL ASSESSMENT: BI-RADS CATEGORY 2 - Benign findings RECOMMENDATION: Screening mammogram in one year. Results will be sent to patient via lay letter by mail. DICTATION LOCATION: [facility] 12/16/2020 3:14 PM TRAINING MGR BILATERAL DIGITAL SCREENING MAMMOGRAM WITH TOMOSYNTHESIS WITH [...] via lay letter by mail. DICTATION LOCATION: [facility] Pili Han MD MAMMO ORDERABLES Final Result from Last 3 Months or Most Recently Relevant to Health Maintenance Insurance [facility] Address: [facility] [address] [place] [address] Advance Directives For more information, please contact: [phone] * Full Code (Latest Code Status on File) Date Activated Date Inactivated Comments 05/08/2016 8:09 AM 05/08/2016 11:57 AM Care Teams Propeller Layout Worker Relationship Specialty Start Date End Date Trent Vazquez MD [address] [place] [phone] PCP - General 11/02/09
--- OUTSIDE RECORDS SUMMARY | 2025-08-04 15:59 | XMS_ITS | Data Portability ---
Author Organization [facility] [place] Address [address] [place] [address] Care Team Providers Care Floral Design Teacher Name Role Phone BETTY BAER Primary Care Provider [phone] Assessment Encounter Date Assessment Date Assessment LastModified [...] Imaging MAMMO, screening, bilateral 2023 024 [email or web address] [facility], [address], [place], [address], 4 08:55:03 DEXA, axial skeleton + vertebral fracture assessment 2023 024 [email or web address] [facility], [address], [place], [address], 4 11:13:59 MAMMO, screening, bilateral 2022 023 [email or web address] [facility], [address], [place], [address], 3 11:06:54 Medication Orders None recorded. Patient TargetsNo targets recorded. Patient InstructionsNo instructions recorded. Reason for Referral None Reported. Results Created Date Observation Date Name Description Value Unit Range Abnormal Flag Note LastModifiedBy Organization Detail LastModifiedTime 02/06/20 22 02/04/2022 MAMMO , scree diogo, bilat eral No observ ation record ed. [facility] [address], [place], [address], 02/19/2022 09:51:12 02/06/20 22 02/04/2022 MAMMO , scree diogo, bilat eral No observ ation record ed. [facility] [address], [place], [address], 02/19/2022 09:36:42 02/19/20 22 02/04/2022 MAMMO , scree diogo, bilat eral No observ ation record ed. [address], [place], [address], 02/20/2022 15:15:30 02/19/20 22 02/04/2022 MAMMO , scree diogo, bilat eral No observ ation record ed. [address] [facility] [address], [place], [address], 02/22/2022 12:17:57 03/19/20 22 03/19/2022 MAMMO , diagn ostic , digit al, bilat eral No observ ation record ed. [facility] [address], [place], [address], 04/02/2022 09:53:05 03/19/20 23 03/18/2023 MAMMO , scree diogo, bilat eral No observ ation record ed. [email or web address] [address], [place], [address], 02/24/2024 17:14:40 08/06/20 24 08/05/2024 DEXA, axial skele ton + verte bral fract ure asses sment No observ ation record ed. [email or web address], [place], [address], 08/10/2024 10:00:35 10/27/19 25 10/27/2024 MAMMO , annee diogo, bilat eral No observ ation record ed. [place] [id number] [facility] [address], [place], [address], 10/27/2024 17:39:11 Result Notes None recorded. Procedures Surgical History Date Name Laterality Status Provider Name and Address Organization Details Recorded Time 03/18/20 23 Date of Last Mammogram completed [facility] 02/24/2024 16:27:10 11/14/19 21 Date of Last Pap Smear completed Marii Brown [facility] 12/11/2021 10:19:19 11/14/19 20 Most Recent Bone Density completed Marii Brown [facility] 12/11/2021 10:19:19 06/11/20 16 completed [facility] 02/24/2024 16:25:50 10/13/19 16 Date of Last Colonoscopy completed [facility] 02/24/2024 16:27:33 10/13/19 03 Total Hysterectomy completed [facility] 02/24/2024 16:27:47 Hysteroscopy completed Marii Brown [facility] 12/11/2021 10:19:26 Imaging Results None recorded. Procedure Notes None recorded. Medical Equipment None Reported. Allergies Allergen ID Allergen Name Allergen Category Reaction Reaction Severity Criticality Documentation Date Start Date Code Code System Note Provider Name and Address Organization Details Recorded Time 12093 Penicilli n Not available Not available Not available Not available 12/11/2021 90198 RxNorm Marii Brown [facility] 10:19:06 Medications Name Sig Start Date Stop [...] Not Available Not Available Vitals Date Recorded Systolic And Diastolic Provider Name and Address Organization Details Last Updated DateTime 12/11/2021 124/80 mm[Hg] Cathy Bullock, [facility] [address], [place], [address], [facility] 12/11/2021 10:47:59 Date Recorded Body height Body mass index (BMI) Body weight Provider Name and Address Organization Details Last Updated DateTime 12/11/2021 159.39 cm 31.4 kg/m2 13627.26 g Marii Brown [facility] 12/11/2021 10:19:01 Date Recorded Systolic And Diastolic Provider Name and Address Organization Details Last Updated DateTime 02/18/2023 130/80 mm[Hg] Cathy Bullock, [facility] [address], [place], [address], [facility] 02/18/2023 16:32:29 Date Recorded Body height Body mass index (BMI) Body weight Provider Name and Address Organization Details Last Updated DateTime 02/18/2023 159.39 cm 30.9 kg/m2 78388.48 g Marni Roe [facility] 02/18/2023 16:30:02 Date Recorded Body height Body mass index (BMI) Body weight Systolic And Diastolic Provider Name and Address Organization Details Last Updated DateTime 02/24/2024 159.39 cm 29.8 kg/m2 24732.93 g 128/82 mm[Hg] Marni Roe [facility] 02/24/2024 16:25:36 Social History Question Answer Notes LastModified by Organizat ion Details LastModified Time Tobacco Smoking Status Former Smoker Gudelia Ravi howard, [facility] 02/18/2023 16:21:40 Do You Have An Advance Directive? No Information n ot available 12/11/2021 How Many Years Have You [...] Or The Highest Degree You Have Received? [id number] Information not available 12/11/2021 Are There Any [...] IV Drugs? No Information not available 12/11/2021 Do You Have Difficulty Walking Or Climbing Stairs? No Information not available 02/18/2023 Sex: Unknown Functional Status Question Answer Note LastModified by Organizat ion Details LastModified Time Do you use any illicit or recreational drugs? Yes Information not available 12/11/2021 What is your level of alcohol consumption? Moderate Information not available 12/11/2021 Are you able to walk independently without assistance or assistive devices? YESWOREST Information not available 12/11/2021 Are you able to care for yourself independently? 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 No [email or web address] Information not available 02/18/2023 What is your exercise level? Occasional Information not available 12/11/2021 Mental Status Question Answer Note LastModified by Organization D etails LastModified Time Do you feel stressed (tense, restless, nervous, or anxious, or unable to sleep at night)? [id number] Information not available 12/11/2021 Family History Relationship Description Onset Age of this Age Resolved Age Notes LastModified by Organization Details LastModified Time Brother Asthma Not available 10:19:09 Brother Anxiety disorder Not available 2021 10:19:09 Mother Malignant neoplasm of kidney Not available 2023 16:19:19 Medical History Condition [...] Diagnosis SNOMED-CT Code Diagnosis ICD10 Code Diagnosis IMO Codes Diagnosis Note [id number] Cathy Bullock [facility] [address] [address] 12/11/2021 09:46:13 12/11/2021 11:24:45 Gynecologic examination 36117224 Z01.419 Take Calcium with Vitamin D 12-1500mg daily. Do monthly self breast exams. It is advised to get annual flu shot in the fall and she could obtain at [facility] or [facility] care clinic. If you haven't received the [...] useDecline d std screenGene tic screen discussed [id number] Cathy Bullock [facility] [address] [address] 02/18/2023 16:20:40 02/18/2023 16:48:03 Gynecologic examination 04289552 Z01.419 Take Calcium with Vitamin D 12-1500mg daily. Do monthly self breast exams. It is advised to get annual flu shot in the fall and she could obtain at [facility] or [facility] care clinic. If you haven't received the [...] Genetic Screen discussed Colon Screen due next year 2023 Dexa Screen due 2023 Routine Labs UTD PCPMammo ordered Postmenopa usal osteopenia 201230756 M85.80 Due next year 2023 Screening mammography 24 466678 Z12.31 [id number] Cathy Bullock [facility] [address] [address] 02/24/2024 16:18:40 02/25/2024 11:42:36 Gynecologic examination 43155393 Z01.419 Take Calcium with Vitamin D 12-1500mg daily. Do monthly self breast exams. It is advised to get annual flu shot in the fall and she could obtain at [facility] or [facility] clinic. If you haven't received the Tdap [...] ensure this is orderedDex a Screen orderedRou Solio COD PCPMammo ordered Screening mammography 24 154113 Z12.31 Postmenopa usal osteopenia 214772685 M85.80 Due next year 2023 Health Concerns Section Related Observation LastModified by Organization Detai ls LastModified Time None Recorded Concern Status LastModified by Organization Details LastModified Time None Recorded Advance Directives Directive N: Payers Insurance Date Sequence Insurance Name Policy Number Policy Cui Covered Member ID Cui Member ID Guarantor Name 02/23/2024 2 [facility] () Jamilah Justin [id number] Jamilah Justin 02/26/2024 1 [employer] [place] [id number] Jamilah Hannahroianni [id number] Jamilah Hannahroianni Notes Date Note Type Note Provider Name and Address Organization Details Recorded Time 2 text/html Annual Cream Maker Post-MenopausalReported by PatientGenitourinary symptomsFor menopausal symptoms, patient reportsno menopausal symptomsandnormal vaginal lubrication. For vaginal bleeding, patient reportshistory of menopause having occurredandno history of post menopausal bleeding. For urinary symptoms, patient reportsno hematuria,no incontinence,no nocturia, andno urinary frequency. For vulva, patient reportsno genital lesionandno vulvar atrophy. For vagina, patient reportsnormal vaginal dischargeandno vaginal atrophy.Breast symptomsFor breast, patient reportsno breast lump,no nipple discharge, andno breast pain.Psychological symptomsFor sexual complaints, patient reportsno sexual complaints. For psychological symptoms, patient reportsno depressionandno anxiety.Preventative measuresFor preventive measures, patient reportsencourage regular mammograms starting age 40,encourage self breast examination,encourage regular exercise,encourage no tobacco use,needs to schedule mammogram, andhistory of recent colonoscopy. Cathy Bullock, NP-BC [address], [place], [address], [facility] 12/11/2021 10:51:37 3 text/html Annual Cream Maker Post-MenopausalReported by PatientGenitourinary symptomsFor menopausal symptoms, patient reportsno menopausal symptomsandnormal vaginal lubrication. For vaginal bleeding, patient reportshistory of menopause having occurredandno history of post menopausal bleeding. For urinary symptoms, patient reportsno hematuria,no incontinence,no nocturia, andno urinary frequency. For vulva, patient reportsno genital lesionandno vulvar atrophy. For vagina, patient reportsnormal vaginal dischargeandno vaginal atrophy.Breast symptomsFor breast, patient reportsno breast lump,no nipple discharge, andno breast pain.Psychological symptomsFor sexual complaints, patient reportsno sexual complaints. For psychological symptoms, patient reportsno depressionandno anxiety.Preventative measuresFor preventive measures, patient reportsencourage regular mammograms starting age 40,encourage self breast examination,encourage regular exercise,encourage no tobacco use,needs to schedule mammogram, andhistory of recent colonoscopy. Cathy Bullock [facility]- [address], [place], [address], [facility] 02/18/2023 16:43:48 4 text/html Annual Cream Maker Post-MenopausalReported by PatientGenitourinary symptomsFor menopausal symptoms, patient reportsno menopausal symptomsandnormal vaginal lubrication. For vaginal bleeding, patient reportshistory of menopause having occurredandno history of post menopausal bleeding. For urinary symptoms, patient reportsno hematuria,no incontinence,no nocturia, andno urinary frequency. For vulva, patient reportsno genital lesionandno vulvar atrophy. For vagina, patient reportsnormal vaginal dischargeandno vaginal atrophy.Breast symptomsFor breast, patient reportsno breast lump,no nipple discharge, andno breast pain.Psychological symptomsFor sexual complaints, patient reportsno sexual complaints. For psychological symptoms, patient reportsno depressionandno anxiety.Preventative measuresFor preventive measures, patient reportsencourage regular mammograms starting age 40,encourage self breast examination,encourage regular exercise,encourage no tobacco use,needs to schedule mammogram,history of recent colonoscopy, andneeds to schedule bone density. CARLY Kidd-ROGELIO [address], [place], [address], [facility] 02/24/2024 17:16:13 OBGyn Episode No OBEpisode recorded.
--- OUTSIDE RECORDS SUMMARY | 2025-08-04 15:59 | XMS_ITS | Encounter Summary ---
Author Organization [employer] Address 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 [place] [address] PCP - General 11/02/09 documented as of this encounter
--- OUTSIDE RECORDS SUMMARY | 2025-08-04 15:59 | XMS_ITS | Encounter Summary ---
Author Organization [employer] Address 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 [address] PCP - General 11/02/09 documented as of this encounter
--- OUTSIDE RECORDS SUMMARY | 2025-08-04 15:59 | XMS_ITS | Encounter Summary ---
Author Organization [facility] Address 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 [id number] PCP - General 11/02/09 documented as of this encounter
--- NOTE | 2025-09-05 02:10 | WPDPFTINT ---
PFT Procedure Performed PFT Procedure Performed Spirometry with Pre/Post Bronchodilator Plethysmography (Lung Vol) Diffusing Cap (DLCO) Flow Vol Loop PFT Interpretation DOS: 08/05/2025 REQUESTING: Trent Vazquez MD REASON FOR TESTING: Dyspnea PULMONARY FUNCTION TESTS Results are reliable and reproducible. Repeatability of spirometry FEV1 maneuver pre and post bronchodilator is Grade A. Bebeto: GLI 2012 reference equations were used. Spirometry: The pre-bronchodilator FEV1 is 2.17 L, 92%. The pre-bronchodilator FVC is 2.31 L, 111%. The FEV1/FVC ratio is 65%, decreased, consistent with airflow obstruction. After bronchodilator, the FEV1 is 2.23 L, 94%, +3. After bronchodilator, the FVC is 3.34 L, 112%, +1. The FEV1/FVC ratio is 67%. Lung volumes: The total lung capacity is 5.97 L, 122%. The residual volume is 2.66 L, 134%. The RV/TLC is 45%. Functional reserve capacity is 3.23 L, 117%. Airway resistance is increased. Diffusion: DLCO is 17.9, 85% predicted, normal. The DLCO/VA is 3.91, 88%, normal. Flow volume loop: The flow volume loop shows minimal coving of the expiratory limb. IMPRESSION: Spirometry shows a mild obstructive ventilatory impairment without significant response to bronchodilator, normal lung volumes, normal diffusion. Lack of response to bronchodilator should not preclude use if clinically indicated. No prior studies to compare. Pili Oshea MD
== END 2025-08-04 14:54 | disposition home or self-care (01) ==
LOC: ANHPFT 14:54
PROVIDERS: PCP Family Medicine; Visit Provider Family Medicine
DX: R06.00 Dyspnea, unspecified (principal); R06.09 Other forms of dyspnea; J45.909 Unspecified asthma, uncomplicated
CPT/HCPCS: 94060; 94726; 94729